=== PATIENT | male | born 1960 | race Caucasian/White ===

== ENCOUNTER → 2024-11-21 16:41 | Outpatient (REF) | payer BC, SELFPAY | LOC: RAD 16:41 | PROVIDERS: ATTENDING PHYSICIAN Specialist | DX: R31.0 Gross hematuria (principal) | CPT/HCPCS: 74178; Q9967 ==

== ENCOUNTER 2024-11-26 15:36 | Inpatient (IN) | payer BC, SELFPAY ==
[2024-11-26] VITALS (7 sets, daily range): BP systolic 126–157; BP diastolic 59–82; BMI 35.0
[2024-11-26 11:46] LABS: Urine Albumin 1+ (Neg - Trace); Urine Bilirubin Negative (Negative); Urine Character Clear (Clear); Urine Color Yellow; Urine Glucose 3+ (Negative); Urine Ketone 1+ (Negative); Urine Leukocyte 1+ (Negative); Urine Nitrite Negative (Negative); Urine Occult Blood 4+ (Negative); Urine Specific Gravity 1.025 (<1.030); Urine Urobilinogen Negative (Neg - 1+)
[2024-11-26 11:51] LABS: Hematocrit 49.2 % (39.0-52.0); Hemoglobin 16.7 g/dL (13.0-18.0); Mean Corp Hgb Conc. 33.9 g/dL (33.0-37.0); Mean Corpuscular Volume 88.5 fL (80.0-94.0); Mean Platelet Volume 8.8 fL (7.4-10.4); Platelet Count 247 10^3/uL (130-400); Red Blood Cell Count 5.56 10^6/uL (4.70-6.10); White Blood Cell Count 29.8 10^3/uL (4.8-10.8)
[2024-11-26 12:01] LABS: ALT (SGPT) 53 U/L (0-50); AST (SGOT) 37 U/L (17-59); Albumin 4.5 g/dl (3.5-5.0); Alkaline Phosphatase 86 U/L (38-126); Blood Urea Nitrogen 16 mg/dl (9-20); Calcium 10.3 mg/dl (8.4-10.2); Carbon Dioxide 20 mmol/L (22-30); Chloride 99 mmol/L (98-107); Glucose 200 mg/dl (70-99); Potassium 4.4 mmol/L (3.5-5.1); Sodium 132 mmol/L (135-145); Total Bilirubin 0.8 mg/dl (0.2-1.3); Total Protein 7.2 g/dl (6.3-8.2); eGFR > 60.00
[2024-11-26 12:15] LABS: Urine Mucus Many
[2024-11-26 12:16] LABS: Urine Amorphous Seen
[2024-11-26 12:17] LABS: Urine Red Blood Cell 0-2 /HPF (0-2)
[2024-11-26 12:21] LABS: Urine Bacteria Few (Negative)
[2024-11-26 12:29] LABS: Absolute Neutrophils -Man Diff 25.3 10^3/uL (1.4-6.5); Atypical Lymphocytes 1 %; Band Neutrophils 16 % (0-3); Lymphocytes 3 % (20-51); Monocytes 11 % (2-9); Platelets Checked Yes; Segmented Neutrophils 69 % (42-75)
[2024-11-26 12:30] LABS: Normal RBC Morphology Yes; Total Cells Counted 100
--- NOTE | 2024-11-26 13:32 | ED.GENMED ---
History of Present Illness
<Meme Ndiaye PA-C - Last Filed: 11/26/24 21:04>
General
Chief Complaint: Urinary Symptoms
Source: patient and spouse ( at bedside)
Exam Limitations: none
Time Seen by Provider: 11/26/24 13:07
Nursing documentation reviewed up to this point in time: agreed with
History of Present Illness
History of Present Illness:
Patient is a 64-year-old male with history hypertension, hyperlipidemia presenting to the emergency department for evaluation of fever associated with headache and bodyaches. Patient reports onset of fever, chills, body aches, and headache on
Monday. He had a temp of 101.2F at home earlier today. He also has been having hematuria. Patient denies any abdominal pain, nausea/vomiting.
Of note�patient has been dealing with hematuria over the past few weeks and had a cystoscopy performed with Dr. Maynard on . Apparently�cystoscopy revealed a very enlarged prostate otherwise no abnormalities. He did have a CT scan of his
abdomen/pelvis on Monday for which she has not received the results yet. Given recent urology procedure and flulike symptoms referred to the emergency department for further evaluation.
Past History
<Sherry Buenrostro DO - Last Filed: 11/26/24 15:29>
Past History
ED Past Medical History: HTN, Hypercholesterolemia, Other (Migraines and sleep apnea) and Other (Patent foramen ovale)
ED Past Surgical History: Other (Surg for sleep apnea)
Social History
Tobacco: Non-smoker
Alcohol: None
Personal:
Living: with family
Employment: Employed
Family History
Family History: Hypertension and Other (Patient has no family history of cerebral aneurysms or subarachnoid hemorrhage. Patient has no personal history of connective tissue disease or polycystic kidney disease.); Negative Early CAD or Sudden
Review of Systems
<Meme Ndiaye PA-C - Last Filed: 11/26/24 21:04>
Review of Systems
Allergies reviewed?: Yes
All Other Systems: ROS reviewed and negative except as documented in HPI and ROS
Phy Exam
<Meme Ndiaye PA-C - Last Filed: 11/26/24 21:04>
Physical Exam
Physical Exam:
Vitals: Mildly tachycardic, otherwise vital signs stable. Temp 99.2F
General: Patient is well appearing, no acute distress
Skin: Warm and dry, no rashes or lesions
Head: Normocephalic, atraumatic
Eyes: Sclera nonicteric. EOMs intact. No nystagmus.
Throat: Protecting airway
Neck: Normal ROM, no cervical spine tenderness, no meningismus
Cardiac: Regular rate and rhythm, no murmurs.
Pulm: Normal respiratory effort, no wheezes, rales, rhonchi heard on exam.
Abdomen: Abdomen soft. No abdominal tenderness. No CVA tenderness
Extremities: No evidence of cyanosis or edema. Palpable DP pulses.
Neuro: AAOx3. CN II-XII intact. No focal neurologic deficits.
Psychiatric: Normal affect.
Sepsis
<Meme Ndiaye PA-C - Last Filed: 11/26/24 21:04>
Sepsis Screening
Sepsis Assessment: Severe Sepsis
Sepsis Screening: Lactate >2mmol/L
Sepsis Screen
Sepsis Screen: Severe Sepsis
Date: 11/26/24
Time: 20:56
<Sherry Buenrostro DO - Last Filed: 11/26/24 15:29>
Sepsis Screen
Sepsis Screen: Severe Sepsis
Date: 11/26/24
Time: 15:29
Course
<Meme Ndiaye PA-C - Last Filed: 11/26/24 21:04>
Orders/Labs/Results
Orders:
Orders
11/26/24 11:28
Complete Blood Count/With Diff Urgent
Comprehensive Metabolic Panel Urgent
Manual Differential Urgent
Urinalysis Reflex To Culture Urgent
Date Specimen was Collected: 11/26/24
Time Specimen was Collected: 11:21
Urine Microscopic Reflex Cult Urgent
Urine Culture Urgent
RAYRAY Source: U
Specimen Description:
Date Specimen was Collected: 11/26/24
Time Specimen was Collected: 11:21
11/26/24 13:18
COVID-19 Antigen Urgent
Source: Nasal Swab
Lactic Acid Urgent
Blood Culture Urgent
RAYRAY Source: Blood/Venous
Specimen Description:
Influenza A+B Rapid Molecular Urgent
RAYRAY Source: Nasal Swab
Specimen Description:
11/26/24 13:40
0.9% Sodium Chloride 1000 ml [Nss] 1,000 ml IV BOLUS
Acetaminophen [Tylenol] 1,000 mg PO NOW STA
Ketorolac [Toradol] 15 mg IV NOW STA
11/26/24 14:12
Cefepime HCl [Maxipime] 2,000 mg IV NOW STA
11/26/24 Dinner
2200 calorie (18 carb) Diabetic
At Your Request: Full Participation
Diabetic Diet: Cholesterol Lowering
11/26/24 15:24
Admit/Transfer Patient As Directed
Co-Sign Provider:
Level of Care: Inpatient admission
Assign to:: Medical/Surgical
Physician / Group: Leonard Chavez
Diagnosis: sepsis
Reason for Hospitalization: sepsis
Expected length of stay greater than two midnights?: Yes
ELOS- Estimated Length of Stay in days: 3
I certify the patient meets the requirements for IP care: Yes
PRN Pain Medication Management As Directed
May give lesser potent ordered pain med per pt: Yes
preference::
Protocol:: Medication orders for pain may be administered in a
manner that supports deferring to patient preference
when the pt is:
- Requesting an ordered lesser potent pain medication.
Least to most potent pain medications are defined
as: acetaminophen < NSAID < tramadol < opioids
(morphine, oxycodone, hydromorphone).
- Requesting a lesser dose of the same medication IF
ORDERED.
- Requesting a less intrusive route of administration
if both routes are prescribed by the provider (PO <
IV).
11/26/24 15:27
Code Status As Directed
Resuscitation Status: Full Code
11/26/24 16:25
Blood Culture Stat
RAYRAY Source: Blood/Venous
Specimen Description:
11/26/24 17:45
0.9% Sodium Chloride 1000 ml [Nss] 1,000 ml IV 125 mls/hr
Acetaminophen [Tylenol] 650 mg PO Q4HPRN PRN
11/26/24 17:45
Activity As Directed
Activity Level: Ambulate
Vital Signs As Directed
Frequency: Per unit guidelines
Weight As Directed
Frequency: Once
DX Deep Vein Thrombosis Video Routine
11/26/24 18:00
Enoxaparin Sodium [Lovenox] 40 mg SC QPM
11/27/24 06:00
Basic Metabolic Panel IN AM
Complete Blood Count/No Diff IN AM
11/27/24 08:00
Finasteride [Proscar] 5 mg PO DAILY
Multivitamin [Theragran] 1 tablet PO DAILY
Ramipril [Altace] 5 mg PO DAILY
Rosuvastatin Calcium [Crestor] 5 mg PO DAILY
Abnormal Lab Results
11/26/24 11/26/24
11:28 13:18
WBC 29.8 H 10^3/uL
(4.8-10.8)
Abs Neuts (Manual) 25.3 H 10^3/uL
(1.4-6.5)
Band Neutrophils 16 H %
(0-3)
Lymphocytes (Manual) 3 L %
(20-51)
Monocytes (Manual) 11 H %
(2-9)
Sodium 132 L mmol/L
(135-145)
Carbon Dioxide 20 L mmol/L
(22-30)
Glucose 200 H mg/dl
(70-99)
Lactic Acid 3.6 H mmol/L
(0.7-2.0)
Calcium 10.3 H mg/dl
(8.4-10.2)
ALT 53 H U/L
(0-50)
Urine Ketones 1+ A
(Negative)
Ur Occult Blood Reflex 4+ A
(Negative)
Leukocyte Esterase Rfl 1+ A
(Negative)
Urine Bacteria (Reflex) Few A
(Negative)
Urine Glucose 3+ A
(Negative)
Urine Albumin (Reflex) 1+ A
(Neg - Trace)
11/26/24 11:28
11/26/24 11:28
Vital Signs
Initial and Last Documented VS:
Initial Vital Signs
Temp Pulse Resp BP Pulse Ox
98.5 F 95 18 126/82 95
11/26/24 11:18 11/26/24 11:18 11/26/24 11:18 11/26/24 11:18 11/26/24 11:18
Last Documented Vital Signs
Temp Pulse Resp BP Pulse Ox
97.8 F 80 24 154/59 97
11/26/24 17:53 11/26/24 17:53 11/26/24 17:53 11/26/24 17:53 11/26/24 17:53
<Sherry Buenrostro, DO - Last Filed: 11/26/24 15:29>
Orders/Labs/Results
Orders:
Orders
11/26/24 11:28
Complete Blood Count/With Diff Urgent
Comprehensive Metabolic Panel Urgent
Manual Differential Urgent
Urinalysis Reflex To Culture Urgent
Date Specimen was Collected: 11/26/24
Time Specimen was Collected: 11:21
Urine Microscopic Reflex Cult Urgent
Urine Culture Urgent
RAYRAY Source: U
Specimen Description:
Date Specimen was Collected: 11/26/24
Time Specimen was Collected: 11:21
11/26/24 13:18
COVID-19 Antigen Urgent
Source: Nasal Swab
Lactic Acid Urgent
Blood Culture Urgent
RAYRAY Source: Blood/Venous
Specimen Description:
Influenza A+B Rapid Molecular Urgent
RAYRAY Source: Nasal Swab
Specimen Description:
11/26/24 13:40
0.9% Sodium Chloride 1000 ml [Nss] 1,000 ml IV BOLUS
Acetaminophen [Tylenol] 1,000 mg PO NOW STA
Ketorolac [Toradol] 15 mg IV NOW STA
11/26/24 14:12
Cefepime HCl [Maxipime] 2,000 mg IV NOW STA
11/26/24 Dinner
2200 calorie (18 carb) Diabetic
At Your Request: Full Participation
Diabetic Diet: Cholesterol Lowering
11/26/24 15:24
Admit/Transfer Patient As Directed
Co-Sign Provider:
Level of Care: Inpatient admission
Assign to:: Medical/Surgical
Physician / Group: Leonard Chavez
Diagnosis: sepsis
Reason for Hospitalization: sepsis
Expected length of stay greater than two midnights?: Yes
ELOS- Estimated Length of Stay in days: 3
I certify the patient meets the requirements for IP care: Yes
PRN Pain Medication Management As Directed
May give lesser potent ordered pain med per pt: Yes
preference::
Protocol:: Medication orders for pain may be administered in a
manner that supports deferring to patient preference
when the pt is:
- Requesting an ordered lesser potent pain medication.
Least to most potent pain medications are defined
as: acetaminophen < NSAID < tramadol < opioids
(morphine, oxycodone, hydromorphone).
- Requesting a lesser dose of the same medication IF
ORDERED.
- Requesting a less intrusive route of administration
if both routes are prescribed by the provider (PO <
IV).
11/26/24 15:27
Code Status As Directed
Resuscitation Status: Full Code
11/26/24 16:25
Blood Culture Stat
RAYRAY Source: Blood/Venous
Specimen Description:
11/26/24 17:45
0.9% Sodium Chloride 1000 ml [Nss] 1,000 ml IV 125 mls/hr
Acetaminophen [Tylenol] 650 mg PO Q4HPRN PRN
11/26/24 17:45
Activity As Directed
Activity Level: Ambulate
Vital Signs As Directed
Frequency: Per unit guidelines
Weight As Directed
Frequency: Once
DX Deep Vein Thrombosis Video Routine
11/26/24 18:00
Enoxaparin Sodium [Lovenox] 40 mg SC QPM
11/27/24 06:00
Basic Metabolic Panel IN AM
Complete Blood Count/No Diff IN AM
11/27/24 08:00
Finasteride [Proscar] 5 mg PO DAILY
Multivitamin [Theragran] 1 tablet PO DAILY
Ramipril [Altace] 5 mg PO DAILY
Rosuvastatin Calcium [Crestor] 5 mg PO DAILY
Abnormal Lab Results
11/26/24 11/26/24
11:28 13:18
WBC 29.8 H 10^3/uL
(4.8-10.8)
Abs Neuts (Manual) 25.3 H 10^3/uL
(1.4-6.5)
Band Neutrophils 16 H %
(0-3)
Lymphocytes (Manual) 3 L %
(20-51)
Monocytes (Manual) 11 H %
(2-9)
Sodium 132 L mmol/L
(135-145)
Carbon Dioxide 20 L mmol/L
(22-30)
Glucose 200 H mg/dl
(70-99)
Lactic Acid 3.6 H mmol/L
(0.7-2.0)
Calcium 10.3 H mg/dl
(8.4-10.2)
ALT 53 H U/L
(0-50)
Urine Ketones 1+ A
(Negative)
Ur Occult Blood Reflex 4+ A
(Negative)
Leukocyte Esterase Rfl 1+ A
(Negative)
Urine Bacteria (Reflex) Few A
(Negative)
Urine Glucose 3+ A
(Negative)
Urine Albumin (Reflex) 1+ A
(Neg - Trace)
11/26/24 11:28
11/26/24 11:28
Vital Signs
Initial and Last Documented VS:
Initial Vital Signs
Temp Pulse Resp BP Pulse Ox
98.5 F 95 18 126/82 95
11/26/24 11:18 11/26/24 11:18 11/26/24 11:18 11/26/24 11:18 11/26/24 11:18
Last Documented Vital Signs
Temp Pulse Resp BP Pulse Ox
97.8 F 80 24 154/59 97
11/26/24 17:53 11/26/24 17:53 11/26/24 17:53 11/26/24 17:53 11/26/24 17:53
<Meme Ndiaye PA-C - Last Filed: 11/26/24 21:04>
MDM/Problems Addressed
Differential Diagnosis Includes:
Not limited to: Viral illness, urosepsis, nephrolithiasis, prostatitis, etc.
MDM/Problems Addressed:
64-year-old male presents with fever, body aches, hematuria 5 days after recent cystoscopy. No other URI symptoms including cough. No abdominal pain. Patient hypertensive and borderline tachycardic on arrival to emergency department. Otherwise
he has stable vital signs. Temp of 99.2F in ED. Physical exam as above. Cardia/pulmonary assessment unremarkable. Abdomen soft and nontender. Patient is perfusing well. Labs initiated in triage reviewed which show a significant leukocytosis of
29.8K. Chemistry shows mild hyperglycemia. Lactic elevated 3.6. Urine without evidence of clear infection although culture pending. Viral swabs negative. Blood cultures were sent. Patient does meet sepsis criteria with unknown etiology
although concern for urologic source given recent cystoscopy. Do not suspect intra-abdominal source given benign abdominal exam -no indication for repeat CT at this time. Did review patient's CT scan performed 4 days ago without any acute
abnormalities. No obstructing stone at that time. Patient hemodynamically stable with lactic acid <4 -will initiate IV fluids with 30 cc/kg fluid bolus not indicated this time. Will start IV cefepime and admit to hospitalist for further
management. Discussed with urologist who is aware. Patient admitted to hospital service in stable condition.
Chronic conditions affecting care:
Diabetes, hypertension
Acute Exacerbation and/or Progression of Chronic Illness:
Acute hyperglycemia, acutely hypertensive
<Meme Ndiaye PA-C - Last Filed: 11/26/24 21:04>
*Pulse Oximetry
Patient hypoxic: no
*EKG
Interpreted by ED Provider?: NA
*Mower Sharpener Interpretation
Rate: Mower Sharpener- N/A
*Critical Care Note
Total Time (30-74mins, 75-104mins- exclusive of procedures): Not Applicable
Data Reviewed
Review of Other/Old Records Reveals: Radiology Studies (CT abdomen pelvis 11/21/2024-no acute abnormalities)
ED Attending Note
<Sherry Davala, DO - Last Filed: 11/26/24 15:29>
ED Attending Note
Patient seen and examined by attending physician: Yes
I performed the substantive portion of visit, reviewed & personally made and approve the management plan that is documented in note by myself or EVERARDO.: Yes
I performed a history and physical exam of patient and discussed management with resident, I reviewed resident's note and agree with documented findings and plan of care.: Yes
ED Attending Note:
64-year-old male presenting to the emergency department with fevers, chills, body aches. Patient also presents with hematuria, which has been ongoing. He has been following with urology, had a cystoscopy with Dr. Maynard last week which was
allegedly normal. Does note that his prostate was enlarged. The following day he did have a CT of his abdomen pelvis, again without acute abnormality. 3 days ago he started to develop fever, chills, body aches. Denies cough. Denies abdominal
pain. Again notes persistent hematuria. He is not on any blood thinners. Vital signs are normal on arrival.
On exam patient is nontoxic, no acute distress. Benign cardiac, pulmonary, abdominal exam. Symptoms are concerning for underlying infection. Possible viral syndrome versus urinary source given recent procedure. Patient had laboratory analysis
obtained prior to my assessment. Patient with marked leukocytosis, which prompted sending of lactic acid. Lactic acid is 3. Blood pressure remained stable however. Given that lactate is less than 4 and blood pressure within normal limits,
without concern for septic shock or severe sepsis. Will start IV fluids, without current indication for full 30 cc/kg bolus. Urine does show some signs of infection, which could be source of patient's systemic infection. Possible component of
prostatitis. Patient did have COVID and flu swab, negative. Patient without any tenderness to his abdomen, without indication for advanced CT imaging at this time. Will start patient on antibiotics for suspected UTI. Culture sent. Plan for
admission. Urology made aware. Patient remained stable at this time.
-
Portions of this chart may have been created with voice recognition software.� Occasional wrong word or��sound alike� substitutions may have occurred due to the inherent limitations of voice recognition software.
Discharge Plan
Departure
Patient Disposition: Admit
Date of Disposition: 11/26/24
Time of Disposition: 14:32
Presentation/result/management discussed w/ accepting MD/DO: Hospitalist
Covid-19: Negative COVID-19
Discharge Problem:
Severe sepsis
Interventions
Interventions:
*Risk Screen - Suicide Last Done: 11/26/24 11:18
*General Assessment Last Done: 11/26/24 11:18
*Neglect/Abuse Screening Last Done: 11/26/24 11:18
ED- Fall Risk Assessment Last Done: 11/26/24 14:06
*ED COVID-19 Vaccine History Last Done: 11/26/24 17:56
*Nursing Disposition Last Done: 11/26/24 17:45
ED-Male Genitourinary Assessment Last Done: 11/26/24 14:06
Discharge Date and Time
Discharge Date/Time: 11/26/24 17:40
[2024-11-26 13:39] LABS: Lactic Acid 3.6 mmol/L (0.7-2.0)
[2024-11-26 13:43] LABS: COVID-19 Antigen Negative (Negative)
[2024-11-26] MEDS: NSS 1000 IV ×2 (14:04→19:09)
[2024-11-26] MEDS: TYLENOL 1000 MG PO (14:05)
[2024-11-26] MEDS: TORADOL 15 MG IV ×2 (14:05→21:16)
[2024-11-26] MEDS: MAXIPIME 2000 MG IV (14:33)
--- NOTE | 2024-11-26 14:43 | HPS.HSE ---
Family Physician
-
Family Physician: NOT KNOW UNKNOWN - PT DOES
Chief Complaint
-
fever, chills, severe headache
History of Present Illness
Patient is a 64-year-old male with past medical history significant for hypertension, hyperlipidemia, BPH, migraines and sleep apnea who presented to [facility] ED for evaluation of fever, chills and severe headache. He states that symptoms
started at approximately 0400 this morning with temp of 101.7F and was associated with a large amount of hematuria. Patient reports hematuria for a few weeks, having seen and undergone cystoscopy with Dr. Maynard last , findings of very
enlarged prostate otherwise no abnormalities. Patient denies any other urinary symptoms. Patient denies any dizziness, cough, shortness of breath, chest pain, nausea, vomiting, constipation, or diarrhea.
Medical History
Past Medical History
Past Medical History: Reports Other
Additional Past Medical History:
hypertension
hyperlipidemia
BPH
prediabetic
migraines
sleep apnea
Past Surgical History: Reports Other
Additional Past Surgical History:
sleep apnea surgery: Le Forte II
Social History
Tobacco: Non-smoker
Alcohol: None
Drug: None
Personal:
Living: With Family
Employment: Employed
Family History
Family History: Other (Mother: HTN, migraines; Sister: breast cancer )
Allergies / Home Medications
Allergies reflects when Allergies were last updated in [email or web address].
Home Medications with original date entered in [email or web address]
Allergy/Medication List:
Allergies
Allergy/AdvReac Type Severity Reaction Status Date / Time
bee venom protein (honey bee) Allergy Tongue Verified 11/26/24 11:21
Swelling
iodine [Iodine] Allergy Hives Verified 11/26/24 11:21
prochlorperazine edisylate Allergy Itching Verified 11/26/24 11:21
[From Compazine]
prochlorperazine maleate Allergy Itching Verified 11/26/24 11:21
[From Compazine]
Home Medications
ramipril 10 mg capsule 5 mg PO DAILY 09/20/10
sumatriptan succinate 50 mg tablet 150 mg PO PRN PRN headache 09/20/10
Vitamin E 1 tab PO DAILY 10/07/12
Fiber Pill 5 tab PO DAILY 11/26/24
Pro [place] Curcumin 1 tab PO TID 11/26/24
finasteride 5 mg tablet 5 mg PO DAILY 11/26/24
hvbybilx-lhmcfnnu-bacdilzs 3 mg-lutein 3 mg-herbal no219 200 mg tablet (PhytoMulti) 1 tab PO DAILY 11/26/24
rosuvastatin 5 mg tablet 5 mg PO DAILY 11/26/24
Review of Systems
-
History Source: Patient
Constitutional: Reports Fever and Chills
EENT: Reports No Symptoms
Respiratory: Reports No Symptoms
Cardiac: Reports No Symptoms
Abdomen/GI: Reports No Symptoms
: Reports Bleeding
Musculoskeletal: Reports No Symptoms
Skin: Reports No Symptoms
Neurological: Reports No Symptoms
Endocrine: Reports No Symptoms
Hematologic/Lymphatic: Reports No Symptoms
Psych: Reports No Symptoms
Physical Exam
Vital Signs
Vital Signs
Temp Pulse Resp BP Pulse Ox
98.5 F 96 21 151/79 95
11/26/24 11:18 11/26/24 14:30 11/26/24 14:30 11/26/24 14:06 11/26/24 13:45
Physical Exam
General: Well Developed, Well Nourished, No Apparent Distress, Comfortable and Conversant
HEENT: NormoCephalic, Moist mucous membranes, Atraumatic, [place] Conjunctivae, Nose Appears Normal and Ears Appear Normal
Respiratory: Clear and Non Labored Respirations
Cardiac: S1/S2 and Regular Rhythm; No Murmur, Rub or Gallop
Breast: Deferred by me
GI: Soft, Non Tender, Non Distended and Normal Bowel Sounds; No Organomegaly
Rectal: Deferred by Provider
Genito-urinary: No costovertebral tender
Musculoskeletal: No Clubbing, No Cyanosis and No Edema
Skin: Warm and IV/Catheter Site; No Rash
Neuro: Awake, Alert, AO x 3 and Nonfocal/grossly intact
Psych: Calm and Intact Judgment/Insight
Laboratory Results
-
11/26/24 11:28
11/26/24 11:28
Laboratory Results
Lactic Acid 3.6 mmol/L (0.7-2.0) H 11/26/24 13:18
Total Bilirubin 0.8 mg/dl (0.2-1.3) 11/26/24 11:28
AST 37 U/L (17-59) 11/26/24 11:28
ALT 53 U/L (0-50) H 11/26/24 11:28
Alkaline Phosphatase 86 U/L (38-126) 11/26/24 11:28
Data Reviewed
-
Lab Data: Labs Reviewed by me (WBC 29.8, Lactic 3.6)
Impression/Plan
-
IMPRESSION/PLAN:
#sepsis likely 2/2 recent cystoscopy
Patient reports hematuria for a few weeks, having seen and undergone cystoscopy with Dr. Maynard last , findings of very enlarged prostate otherwise no abnormalities.
WBC 29.8. Lactic 3.6
UA C&S: pending
Blood Cx: pending
Covid: negative
Influenza: negative
- Admit to med/surg
- IV antibiotics
- IVF
- supportive care
#hypertension
- continue ramipril
#hyperlipidemia
- continue rosuvastatin
#BPH
- continue finasteride
#prediabetes
patient reports A1C 7.8 down to 7.1
- currently monitoring
- patient with lifestyle adjustments, healthy diet, weight loss and exercise
#obesity from excess calories
- affects all aspects of care
- encourage healthy lifestyle with healthy diet and exercise for weight loss
#migraines
- continue sumatriptan PRN
#sleep apnea
s/p sleep apnea surgery: Le Forte II
Code status: full code
DVT prophylaxis: lovenox sq
--- NOTE | 2024-11-26 14:50 | CONS.URO ---
Consultation
-
Date/Time Consultation Performed: 11/26/24 1605
Requesting Provider: ED
Performing Provider: Elio
Reason for Consultation: hematuria
Medical History
History of Present Illness
'Patient is a 64-year-old male presented to the emergency department for evaluation of fever, headache and bodyaches. Patient reports onset of fever, chills, body aches, and headache on Monday. He had a temp of 101.2F at home earlier today.'
Outpatient cystoscopy on 11/20/[address] Maynard demonstrated friable BPH only.
He denies frequency/urgency/dysuria.
Past Medical History
Past Medical History: Other ( Hypertension. Hyperlipidemia. Migraine. Sleep Apnea. Anxiety. BPH. Covid-19 (04/2022).)
Past Surgical History: Other (sleep apnea surgery: Le Forte II)
Social History
Personal:
Allergies/Home Medications
Allergies
Allergy/AdvReac Type Severity Reaction Status Date / Time
bee venom protein (honey bee) Allergy Tongue Verified 11/26/24 11:21
Swelling
iodine [Iodine] Allergy Hives Verified 11/26/24 11:21
prochlorperazine edisylate Allergy Itching Verified 11/26/24 11:21
[From Compazine]
prochlorperazine maleate Allergy Itching Verified 11/26/24 11:21
[From Compazine]
Home Medications
�Medication �Instructions �Recorded �Confirmed �Type
ramipril 10 mg capsule 5 mg PO DAILY 09/20/10 11/26/24 History
sumatriptan succinate 50 mg tablet 150 mg PO PRN PRN headache 09/20/10 11/26/24 History
verapamil 240 mg tablet,extended 240 mg PO DAILY 09/20/10 10/29/13 History
release
Vitamin E 1 tab PO DAILY 10/07/12 10/29/13 History
Fiber Pill 5 tab PO DAILY 11/26/24 11/26/24 History
Pro [place] Curcumin 1 tab PO TID 11/26/24 11/26/24 History
finasteride 5 mg tablet 5 mg PO DAILY 11/26/24 11/26/24 History
wpqnfzvo-zvckupca-qhzeqkam 3 1 tab PO DAILY 11/26/24 11/26/24 History
mg-lutein 3 mg-herbal no219 200 mg
tablet (PhytoMulti)
rosuvastatin 5 mg tablet 5 mg PO DAILY 11/26/24 11/26/24 History
Physical Exam
Vital Signs
Vital Signs
Temp Pulse Resp BP Pulse Ox
98.5 F 96 21 151/79 95
11/26/24 11:18 11/26/24 14:30 11/26/24 14:30 11/26/24 14:06 11/26/24 13:45
Lab / Testing Results
Laboratory Results
11/26/24 11:28
11/26/24 11:28
Physical Exam
adult male on ED [facility]
General: Well Nourished and No Apparent Distress
Neuro: Awake and Alert
Psych: Calm and Intact Judgement
Assessment / Plan
-
Systemic infection of uncertain etiology -- bacterial prostatitis s/p cystoscopy is one possibility though absence of irritative voiding sx make this a less likely candidate that a viral URI
Rec: tx for bacterial UTI pending urine cx results
Data Reviewed
-
CT Scan: Image personally visualized and interpreted (no pathology)
Lab Data: Labs Reviewed
Old Records: Reviewed
--- NOTE | 2024-11-26 15:54 | W.PN.UPDATE ---
Update Note
Progress Note Update
This is an addendum to the H&P written by Rossana Lindsey on 11/26/2024.� Patient seen and examined independently with CAR DEALER.
64-year-old male past medical history of BPH, PFO, hypertension, hyperlipidemia, migraines, sleep apnea, presenting with fever with headache and bodyaches starting 2 days ago.� Also with blood in the urine.� Denies abdominal pain or nausea or
vomiting.� He has been having hematuria for the past 2 weeks and a cystoscopy Dr. Maynard 5 days ago.� Cystoscopy revealed very enlarged prostate doubt any other abnormalities.
White blood cell count of 29.� Lactic acid 3.6.� COVID and flu negative.� Urinalysis shows blood but otherwise unremarkable.
Patient with sepsis likely secondary to urinary infection from recent cystoscopy.� IV fluids, urine culture, blood cultures, ceftriaxone.� Urology consulted.��
[2024-11-26 17:18] LABS: Lactic Acid 2.2 mmol/L (0.7-2.0)
--- NOTE | 2024-11-26 18:15 | PTCARENOTE ---
Pt brought up by ED via stretcher and able to ambulate to bed without assistance. Admission completed and pt. resting comfortably in bed. Will update [facility] worker RN.
[2024-11-26] MEDS: LOVENOX 40 MG SC (19:09)
[2024-11-26] MEDS: TYLENOL 650 MG PO (19:09)
[2024-11-26 21:37] LABS: Glucose - Point of Care 188 mg/dl (70-99)
[2024-11-26] MEDS: BENADRYL 25 MG PO (22:02)
[2024-11-26 22:37] LABS: Lactic Acid 1.8 mmol/L (0.7-2.0)
[2024-11-27] MEDS: STERILE WATER FOR INJECTION 10 ML IV ×2 (02:19→14:28)
[2024-11-27] MEDS: MAXIPIME 1000 MG IV ×2 (02:19→14:28)
[2024-11-27] MEDS: NSS 1000 IV ×2 (03:31→11:50)
[2024-11-27] MEDS: TORADOL 15 MG IV ×2 (03:45→14:28)
--- NOTE | 2024-11-27 05:38 | PTCARENOTE ---
Pt c/o urinary frequency, no c/o burning. Urine slightly blood tinged, no clots present. difficulty visualizing bladder w/ bladder scan d/t body habitus. No c/o discomfort or pain and abd not distended. Contacted [employer] SURVEYS INTERVIEWER for Pyridium, electronic order
for Toradol 15mg IV added. Will pass on urinary frequency complaints to dayshift RN. Plan of care ongoing.
[2024-11-27 06:46] LABS: Hematocrit 39.6 % (39.0-52.0); Hemoglobin 13.7 g/dL (13.0-18.0); Mean Corp Hgb Conc. 34.6 g/dL (33.0-37.0); Mean Corpuscular Hgb 30.2 pg (27.0-31.0); Mean Corpuscular Volume 87.2 fL (80.0-94.0); Platelet Count 213 10^3/uL (130-400); Red Blood Cell Count 4.54 10^6/uL (4.70-6.10); Red Cell Dist. Width 13.2 % (11.5-14.5); White Blood Cell Count 25.8 10^3/uL (4.8-10.8)
[2024-11-27 07:06] LABS: Lactic Acid 1.1 mmol/L (0.7-2.0)
[2024-11-27 07:19] VITALS: BP 146/77
[2024-11-27 07:23] LABS: Glucose - Point of Care 195 mg/dl (70-99)
[2024-11-27 07:31] LABS: Blood Urea Nitrogen 16 mg/dl (9-20); Calcium 9.6 mg/dl (8.4-10.2); Carbon Dioxide 22 mmol/L (22-30); Chloride 102 mmol/L (98-107); Estimated Creatinine Clearance > 125 ml/min; Glucose 179 mg/dl (70-99); Potassium 3.8 mmol/L (3.5-5.1); Sodium 132 mmol/L (135-145); eGFR > 60.00
--- NOTE | 2024-11-27 07:34 | W.PN.HOSP.TC ---
Today's Communication/Plan
-
see bold
Assessment / Plan
Assessment / Plan
64-year-old male past medical history of BPH, PFO, hypertension, hyperlipidemia, migraines, sleep apnea, presenting with fever with headache and bodyaches starting 2 days ago.� Also with blood in the urine.� Denies abdominal pain or nausea or
vomiting.� He has been having hematuria for the past 2 weeks and a cystoscopy Dr. Maynard 5 days ago.� Cystoscopy revealed very enlarged prostate doubt any other abnormalities.
White blood cell count of 29.� Lactic acid 3.6.� COVID and flu negative.� Urinalysis shows blood but otherwise unremarkable.
Patient with sepsis likely secondary to urinary infection from recent cystoscopy.� IV fluids, urine culture, blood cultures, ceftriaxone.� Urology consulted.��
#Sepsis likely 2/2 acute UTI
Recent cystoscopy 11/20/[address] Maynard showing friable BPH
Patient reports hematuria for a few weeks
Appreciate urology input, continue IV cefepime, follow-up on urine cultures
Urology ordered Detrol
Trend fever/white count
#Headache
Continue sumatriptan, ibuprofen, oxy prn
#hypertension
Continue ramipril
#hyperlipidemia
Continue rosuvastatin
#BPH
Continue finasteride
#diabetes
A1C 7.7
Sliding scale insulin, start glimepiride
#obesity from excess calories
- affects all aspects of care
- encourage healthy lifestyle with healthy diet and exercise for weight loss
#sleep apnea
s/p sleep apnea surgery: Le Forte II
DVT prophylaxis: lovenox sq
Full Code
Updated at bedside 11/27
Total time spent to see the patient on the floor, examine the patient, review data and lab results, discuss treatment plan with patient, nursing staff around 51 minutes.
Physical Exam
General: Obese, no acute distress
HEENT: Normocephalic, Atraumatic, EOMI, MMM
Respiratory: Clear to Auscultation bilaterally
Cardiac: Normal S1/S2, Regular Rate and Rhythm
GI: Soft, Nontender, Nondistended, Normal Bowel Sounds
Extremities: No Clubbing, Cyanosis, or Edema
Neuro: Nonfocal/Grossly Intact
Anticipated Discharge: 24 - 48 hours
Subjective/Interval History
-
Date of Service: November 27, 2024
Patient complains of urinary frequency. Denies CP/SOB/palp. No fever, no vomiting.
Objective Data
-
Labs:
Laboratory Results
11/27/24
06:32
WBC 25.8 H
Hgb 13.7
Hct 39.6
Plt Count 213
Sodium 132 L
Potassium 3.8
Chloride 102
Carbon Dioxide 22
BUN 16
Creatinine 0.8
Glucose 179 H
Calcium 9.6
Vital Signs:
Vital Signs
Temp Pulse Resp BP Pulse Ox
98.3 F 82 24 146/77 98
11/27/24 07:19 11/27/24 07:19 11/27/24 07:19 11/27/24 07:19 11/27/24 07:19
I&O
11/26/24 11/27/24 11/28/24
06:59 06:59 06:59
Intake Total 1919
Output Total 500 / 500
Balance 1420 / 1420
--- NOTE | 2024-11-27 08:38 | W.PN.URO.CBU ---
Today's Communication / Plan
-
Rec: tx for bacterial UTI pending urine cx results
Phenazopyridine and Tamsulosin prescribed to diminish irritative voiding sx
Assessment / Plan
-
Systemic infection of uncertain etiology -- bacterial prostatitis s/p cystoscopy is one possibility though absence of irritative voiding sx make this a less likely candidate that a viral URI
Diagnosis
-
Date of Service: November 27, 2024
-
Patient Diagnosis:
Systemic infection of uncertain etiology -- bacterial prostatitis s/p cystoscopy is one possibility though absence of irritative voiding sx make this a less likely candidate that a viral URI
Subjective
-
irritative voiding sx
Objective
-
Vital Signs
Temp Pulse Resp BP Pulse Ox
98.3 F 82 24 146/77 98
11/27/24 07:19 11/27/24 07:19 11/27/24 07:19 11/27/24 07:19 11/27/24 07:19
Intake and Output
11/26/24 11/27/24 11/28/24
06:59 06:59 06:59
Intake Total 1920 / 1920
Output Total 500 / 500
Balance 1420 / 1420
Intake:
Oral fluids 720 / 720
IV fluids (Total) 1200 / 1200
Output:
Urine, Voided 500 / 500
Other:
Number of approximated MODERATE 7
amounts of urine
Laboratory Results
11/27/24 06:32
11/27/24 06:32
urine cx: pending
Physical Exam
-
General - well developed, well nourished, no acute distress
Chest - clear bilaterally
Abdomen - soft, non-tender, positive bowel sounds, no CVAT, no incisional pain or distention
Genitalia - normal
Rectal - normal
Skin - warm & dry with no rash
Neuro - AOx3, no motor deficits
Extremities - no clubbing, no cyanosis, no edema
Incision - clean, dry
Dressing - clean, dry, intact
[2024-11-27] MEDS: PROSCAR 5 MG PO (08:48)
[2024-11-27] MEDS: Pyridium 200 MG PO ×3 (08:48→22:09)
[2024-11-27] MEDS: FLOMAX 0.4 MG PO (08:48)
[2024-11-27] MEDS: THERAGRAN 1 TABLET PO (08:48)
[2024-11-27] MEDS: CRESTOR 5 MG PO (08:48)
[2024-11-27] MEDS: ALTACE 5 MG PO (08:48)
[2024-11-27] MEDS: GLUCOTROL 5 MG PO ×2 (10:54→18:20)
[2024-11-27 11:55] LABS: Glucose - Point of Care 235 mg/dl (70-99)
[2024-11-27] MEDS: NOVOLOG FLEXPEN-MODERATE RESISTANCE 3 UNITS SC (12:04)
--- NOTE | 2024-11-27 12:40 | PTCARENOTE ---
Pt. complaining of worsening urinary symptoms- needing to void every couple of minutes, unable to fully empty his bladder, and continuing to have bloody urine as well as occasional clots in the urine. PRN Pyridium given this morning with zero
relief. Urologist updated on pt. condition. This RN educated pt. on symptoms related to diabetes, UTI, and BPH- type 2 diabetes education packet from [employer] given to Pt. Pt. stated he has previously been recommended to start medications to manage
his diabetes but has refused in the past. Today BG 235,- Pt. agreeable to have Accu-checks and receive his sliding scale Novolog as well as the glipizide that was started today by Dr. De Jesus. HA1C pending.
--- NOTE | 2024-11-27 14:15 | CM ---
Met with patient to obtain information for assessment. Patient's was at bedside. Patient stated that he lives with his and adult son in a three story townhouse with two steps to enter. He described himself as independent with all of his
ADLs, personal care, dressing and bathing. 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 He can drive and can get himself to his appointments and does his own shopping. 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
Patient denied any DME at home. He has never had VN services. He has not been to a SNF in the past.
Patient has a prescription plan and uses, [facility] [place] for all of his medications.
His PCP is not listed.
Patient stated that he would like to return home when medically cleared.
Plan: Case management will continue to follow and assist with discharge planning. Home when stable.
[2024-11-27 14:17] VITALS: BP 149/78
[2024-11-27 14:18] LABS: Glycohemoglobin (HgbA1c) 7.7 % (4.0-5.6)
[2024-11-27] MEDS: TYLENOL 650 MG PO (14:27)
[2024-11-27] MEDS: DETROL LA 4 MG PO (15:57)
[2024-11-27 17:10] LABS: Glucose - Point of Care 147 mg/dl (70-99)
[2024-11-27] MEDS: NOVOLOG FLEXPEN-MODERATE RESISTANCE SC (17:21)
[2024-11-27] MEDS: LOVENOX 40 MG SC (18:20)
[2024-11-27] MEDS: MELATONIN 5 MG PO (20:40)
[2024-11-27] MEDS: BENADRYL 50 MG PO (22:09)
[2024-11-27 22:14] LABS: Glucose - Point of Care 121 mg/dl (70-99)
[2024-11-27 23:30] VITALS: BP 139/86
[2024-11-28] MEDS: MAXIPIME 1000 MG IV (01:59)
[2024-11-28] MEDS: STERILE WATER FOR INJECTION 10 ML IV ×2 (01:59→13:24)
[2024-11-28] MEDS: MOTRIN 800 MG PO ×3 (02:03→21:21)
[2024-11-28] MEDS: NSS 1000 IV (02:09)
[2024-11-28 07:10] VITALS: BP 146/89
[2024-11-28] MEDS: Pyridium 200 MG PO ×3 (07:12→21:21)
[2024-11-28] MEDS: PROSCAR 5 MG PO (07:20)
[2024-11-28] MEDS: DETROL LA 4 MG PO (07:20)
[2024-11-28] MEDS: CRESTOR 5 MG PO (07:20)
[2024-11-28] MEDS: FLOMAX 0.4 MG PO (07:20)
[2024-11-28] MEDS: THERAGRAN 1 TABLET PO (07:20)
[2024-11-28] MEDS: ALTACE 5 MG PO (07:20)
[2024-11-28] MEDS: GLUCOTROL 5 MG PO ×2 (07:20→16:05)
[2024-11-28 07:27] LABS: Hematocrit 42.4 % (39.0-52.0); Hemoglobin 14.2 g/dL (13.0-18.0); Mean Corp Hgb Conc. 33.5 g/dL (33.0-37.0); Mean Corpuscular Hgb 30.4 pg (27.0-31.0); Mean Corpuscular Volume 90.8 fL (80.0-94.0); Mean Platelet Volume 8.8 fL (7.4-10.4); Platelet Count 222 10^3/uL (130-400); Red Blood Cell Count 4.67 10^6/uL (4.70-6.10); Red Cell Dist. Width 13.3 % (11.5-14.5); White Blood Cell Count 20.9 10^3/uL (4.8-10.8)
[2024-11-28 08:04] LABS: Glucose - Point of Care 137 mg/dl (70-99)
[2024-11-28 08:29] LABS: Blood Urea Nitrogen 13 mg/dl (9-20); Carbon Dioxide 21 mmol/L (22-30); Chloride 106 mmol/L (98-107); Estimated Creatinine Clearance > 125 ml/min; Glucose 131 mg/dl (70-99); Potassium 4.1 mmol/L (3.5-5.1); Sodium 135 mmol/L (135-145); eGFR > 60.00
[2024-11-28] MEDS: NOVOLOG FLEXPEN-MODERATE RESISTANCE SC ×3 (08:37→17:17)
--- NOTE | 2024-11-28 08:50 | W.PN.HOSP.TC ---
Today's Communication/Plan
-
Probable discharge tomorrow with continued improvement
Assessment / Plan
Assessment / Plan
64-year-old male past medical history of BPH, PFO, hypertension, hyperlipidemia, migraines, sleep apnea, presenting with fever with headache and bodyaches starting 2 days ago.� Also with blood in the urine.� Denies abdominal pain or nausea or
vomiting.� He has been having hematuria for the past 2 weeks and a cystoscopy Dr. Maynard 5 days ago.� Cystoscopy revealed very enlarged prostate doubt any other abnormalities.
White blood cell count of 29.� Lactic acid 3.6.� COVID and flu negative.� Urinalysis shows blood but otherwise unremarkable.
Patient with sepsis likely secondary to urinary infection from recent cystoscopy.� IV fluids, urine culture, blood cultures, ceftriaxone.� Urology consulted.��
#Sepsis
#Subacute bacterial prostatitis
Recent cystoscopy 11/20/[address] Maynard showing friable BPH
Patient reports hematuria for a few weeks
Appreciate urology input, order Detrol
Urine cultures growing Klebsiella, sensitive to cefepime and Rocephin
Change cefepime to Rocephin, trend fever and white count
Possible discharge tomorrow
#Headache
Continue ibuprofen, oxy prn
#hypertension
Continue ramipril
#hyperlipidemia
Continue rosuvastatin
#BPH
Continue finasteride and Flomax
#diabetes
A1C 7.7
Sliding scale insulin, blood sugars improved with starting glipizide 5 mg twice a day, recommend continuing upon discharge
#hyponatremia
monitor
#obesity from excess calories
- affects all aspects of care
- encourage healthy lifestyle with healthy diet and exercise for weight loss
#sleep apnea
s/p sleep apnea surgery: Le Forte II
DVT prophylaxis: lovenox sq
Full Code
Updated at bedside 11/27
Total time spent to see the patient on the floor, examine the patient, review data and lab results, discuss treatment plan with patient, nursing staff around 50 minutes.
Physical Exam
General: Obese, no acute distress
HEENT: Normocephalic, Atraumatic, EOMI, MMM
Respiratory: Clear to Auscultation bilaterally
Cardiac: Normal S1/S2, Regular Rate and Rhythm
GI: Soft, Nontender, Nondistended, Normal Bowel Sounds
Extremities: No Clubbing, Cyanosis, or Edema
Neuro: Nonfocal/Grossly Intact
Anticipated Discharge: Within 24 hours
Subjective/Interval History
-
Date of Service: November 28, 2024
Patient reports feeling better. Headache resolved. Fever resolved. No chest pain, no shortness of breath. No belly pain, no vomiting.
Objective Data
-
Labs:
Laboratory Results
11/28/24
06:59
WBC 20.9 H
Hgb 14.2
Hct 42.4
Plt Count 222
Sodium 135
Potassium 4.1
Chloride 106
Carbon Dioxide 21 L
BUN 13
Creatinine 0.7
Glucose 131 H
Calcium 10.0
Vital Signs:
Vital Signs
Temp Pulse Resp BP Pulse Ox
97.6 F 69 16 146/89 98
11/28/24 07:10 11/28/24 07:20 11/28/24 07:10 11/28/24 07:20 11/28/24 07:10
I&O
11/27/24 11/28/24 11/29/24
06:59 06:59 06:59
Intake Total 1920 / 1920 1440 / 1440
Output Total 500 / 500 100 / 100
Balance 1420 / 1420 1340 / 1340
--- NOTE | 2024-11-28 08:58 | PN.CDI ---
CDI
- -
CDI:
Physician Documentation Request
Admit Date: 11/26/24 15:36
Dear Doctor Do,
Clinical Indicators:
Patient admitted with sepsis; Patient presented with headache/bodyaches.
Sodium levels:
11/26/24 11/27/24
11:28 06:32
Sodium 132 L 132 L
Based on the above, could you clarify in the progress notes, the appropriate diagnosis, if significant, that supports the above abnormalities and additional evaluation, monitoring and/or treatment rendered:
Hyponatremia
Abnormal lab values, clinically insignificant
Other
Use of terms such as suspected, likely, concern for, or probable (associated with a specific diagnosis that is being evaluated, monitored, or treated as if it exists) are acceptable and can be coded in the inpatient setting, when documented at the
time of discharge.
Thank you,
Ignacia Tucker RN BSN
CDI Specialist
available via tiger text
Please use your independent medical judgment in providing your response.
--- NOTE | 2024-11-28 10:18 | W.PN.URO.CBU ---
Today's Communication / Plan
-
Sub-acute bacterial prostatitis w/o bacteremia: Klebsiella sensitive to cefepime
Assessment / Plan
-
Sub-acute bacterial prostatitis w/o bacteremia
Diagnosis
-
Date of Service: November 28, 2024
-
Patient Diagnosis:
Systemic infection of uncertain etiology -- c/w bacterial prostatitis s/p cystoscopy (Klebsiella confirmed)
Subjective
-
Feels better
Urine frequency lessening
Objective
-
Vital Signs
Temp Pulse Resp BP Pulse Ox
97.6 F 69 16 146/89 98
11/28/24 07:10 11/28/24 07:20 11/28/24 07:10 11/28/24 07:20 11/28/24 07:10
Intake and Output
11/27/24 11/28/24 11/29/24
06:59 06:59 06:59
Intake Total 1920 / 1920 1440 / 1440
Output Total 500 / 500 100 / 100
Balance 1420 / 1420 1340 / 1340
Intake:
Oral fluids 720 / 720 1440 / 1440
IV fluids (Total) 1200 / 1200
Output:
Urine, Voided 500 / 500 100 / 100
Other:
Number of approximated SMALL 12
amounts of urine
Number of approximated MODERATE 7
amounts of urine
Laboratory Results
11/28/24 06:59
11/28/24 06:59
Review of Systems
-
Constitutional: Fatigue
Respiratory: No Symptoms
Cardiac: No Symptoms
Abdomen/GI: No Symptoms
: Frequency and Urgency
Physical Exam
-
General - well developed, well nourished, no acute distress
Abdomen - soft, non-tender, no CVAT
Genitalia - normal
Skin - warm & dry with no rash
Counseling
-
Continue cefepime and then switch to oral antibiotic
Continue tolterodine while an inpatient
[2024-11-28 11:35] VITALS: BP 124/61; BMI 31.7
[2024-11-28 12:01] LABS: Glucose - Point of Care 106 mg/dl (70-99)
[2024-11-28] MEDS: NSS IV (13:18)
[2024-11-28] MEDS: ROCEPHIN 1000 MG IV (13:24)
--- NOTE | 2024-11-28 14:09 | PTCARENOTE ---
Pt c/o overreactive bladder. made aware, new order provided, see MAR.
[2024-11-28] MEDS: VALIUM 5 MG PO (14:15)
[2024-11-28 14:41] VITALS: BP 154/84
--- NOTE | 2024-11-28 16:46 | PTCARENOTE ---
Pt requested development educator consult, MD made aware, new verbal order provided.
[2024-11-28 16:49] LABS: Glucose - Point of Care 78 mg/dl (70-99)
[2024-11-28] MEDS: LOVENOX 40 MG SC (17:45)
[2024-11-28] MEDS: BENADRYL 50 MG PO (21:41)
[2024-11-28] MEDS: MELATONIN 5 MG PO (21:41)
[2024-11-28 21:53] LABS: Glucose - Point of Care 136 mg/dl (70-99)
--- NOTE | 2024-11-28 22:18 | PTCARENOTE ---
Pt c/o frequency, urgency, and pain w/ urination. Bladder scanned for 862mls. HEADER DOCK notified, BS/SC protocol ordered. Pt straight cathed for 900mls of clear orange urine (pt taking pyridium. Plan of care ongoing.
[2024-11-28 23:40] VITALS: BP 125/71
[2024-11-29 02:02] VITALS: BMI 34.9
[2024-11-29 07:05] VITALS: BP 142/88
[2024-11-29 07:26] LABS: Glucose - Point of Care 142 mg/dl (70-99)
[2024-11-29 07:27] LABS: Hematocrit 38.3 % (39.0-52.0); Hemoglobin 13.1 g/dL (13.0-18.0); Mean Corp Hgb Conc. 34.2 g/dL (33.0-37.0); Mean Corpuscular Hgb 30.2 pg (27.0-31.0); Mean Corpuscular Volume 88.2 fL (80.0-94.0); Mean Platelet Volume 9.3 fL (7.4-10.4); Platelet Count 253 10^3/uL (130-400); Red Blood Cell Count 4.34 10^6/uL (4.70-6.10); Red Cell Dist. Width 13.3 % (11.5-14.5); White Blood Cell Count 10.3 10^3/uL (4.8-10.8)
[2024-11-29 07:51] LABS: Glucose - Point of Care 122 mg/dl (70-99)
--- NOTE | 2024-11-29 08:43 | W.PN.HOSP.TC ---
Today's Communication/Plan
-
see bold
Assessment / Plan
Assessment / Plan
64-year-old male past medical history of BPH, PFO, hypertension, hyperlipidemia, migraines, sleep apnea, presenting with fever with headache and bodyaches starting 2 days ago.� Also with blood in the urine.� Denies abdominal pain or nausea or
vomiting.� He has been having hematuria for the past 2 weeks and a cystoscopy Dr. Maynard 5 days ago.� Cystoscopy revealed very enlarged prostate doubt any other abnormalities.
White blood cell count of 29.� Lactic acid 3.6.� COVID and flu negative.� Urinalysis shows blood but otherwise unremarkable.
Patient with sepsis likely secondary to urinary infection from recent cystoscopy.� IV fluids, urine culture, blood cultures, ceftriaxone.� Urology consulted.��
#Sepsis
#Subacute bacterial prostatitis
Recent cystoscopy 11/20/[address] Maynard showing friable BPH
Patient reports hematuria for a few weeks
Appreciate urology input
Urine cultures growing Klebsiella, sensitive to cefepime and Rocephin
Changed cefepime to Rocephin, trend fever and white count
Plan to discharge on cefdinir to complete a 14-day course
#Acute urinary retention
#BPH
Continue finasteride and Flomax
Stop Detrol and Valium
Straight cath as needed, if patient continues to have urinary retention�urology recommends discharge with Long and follow-up in the office early next week for removal
#Headache
Continue ibuprofen, oxy prn
#hypertension
Continue ramipril
#hyperlipidemia
Continue rosuvastatin
#diabetes
A1C 7.7
Sliding scale insulin, blood sugars improved with starting glipizide 5 mg twice a day, recommend continuing upon discharge
#hyponatremia
monitor
#obesity from excess calories
- affects all aspects of care
- encourage healthy lifestyle with healthy diet and exercise for weight loss
#sleep apnea
s/p sleep apnea surgery: Le Forte II
DVT prophylaxis: lovenox sq
Full Code
Updated at bedside 11/27
Total time spent to see the patient on the floor, examine the patient, review data and lab results, discuss treatment plan with patient, nursing staff around 45 minutes.
Physical Exam
General: Obese, no acute distress
HEENT: Normocephalic, Atraumatic, EOMI, MMM
Respiratory: Clear to Auscultation bilaterally
Cardiac: Normal S1/S2, Regular Rate and Rhythm
GI: Soft, Nontender, Nondistended, Normal Bowel Sounds
Extremities: No Clubbing, Cyanosis, or Edema
Neuro: Nonfocal/Grossly Intact
Anticipated Discharge: Within 24 hours
Subjective/Interval History
-
Date of Service: November 29, 2024
Patient complains of urinary retention, requiring straight cath. No fever, no vomiting.
Objective Data
-
Labs:
Laboratory Results
11/29/24
07:00
WBC 10.3
Hgb 13.1
Hct 38.3 L
Plt Count 253
Vital Signs:
Vital Signs
Temp Pulse Resp BP Pulse Ox
97.8 F 68 18 142/88 96
11/29/24 07:05 11/29/24 07:05 11/29/24 07:05 11/29/24 07:05 11/29/24 07:05
I&O
11/28/24 11/29/24 11/30/24
06:59 06:59 06:59
Intake Total 1440 / 1440 540 / 540
Output Total 100 / 100 900 / 900
Balance 1340 / 1340 -360 / -360
[2024-11-29] MEDS: NOVOLOG FLEXPEN-MODERATE RESISTANCE SC ×3 (09:23→17:38)
[2024-11-29] MEDS: Pyridium 200 MG PO ×2 (09:35→14:35)
[2024-11-29] MEDS: VALIUM 5 MG PO (09:35)
[2024-11-29] MEDS: THERAGRAN 1 TABLET PO (09:35)
[2024-11-29] MEDS: FLOMAX 0.4 MG PO (09:35)
[2024-11-29] MEDS: DETROL LA 4 MG PO (09:35)
[2024-11-29] MEDS: GLUCOTROL 5 MG PO ×2 (09:36→17:39)
[2024-11-29] MEDS: PROSCAR 5 MG PO (09:36)
[2024-11-29] MEDS: ALTACE 5 MG PO (09:36)
[2024-11-29] MEDS: CRESTOR 5 MG PO (09:36)
--- NOTE | 2024-11-29 11:32 | PTCARENOTE ---
11/29/2024 DIABETES EDUCATION
I met with Ambrose to review diabetes management. Member has DM diagnosis, declined medications and was controlling with diet and exercise. His HbA1c while inpatient is 7.7%. I educated on physiology of T2D, managing with medications, monitoring
BG, nutrition, and activity.
Member currently taking Glipizide while inpatient, I educated on mechanism of action and if he is taking upon d/c educated on administering 30 minutes before first meal unless otherwise instructed by provider.
Discussed normal target glucose ranges and a monitoring schedule fasting preprandial in AM and 2 hours postprandial. I reinforced signs of hyperglycemia, hypoglycemia and hypoglycemia protocol; BS parameters and recommended HbA1c goals, written
material provided. I educated and reviewed using [employer] glucometer, member acknowledged understanding with a self-demonstration of checking BS.
Encouraged patient to follow up with his PCP for post d/c appointment and to monitor medication and blood glucose levels.
Member has appt with new PCP upon discharge, declined for DM team to send prescription to pharmacy for test strips. He will discuss with his PCP, considering CGM. Patient declined IP RD consult, is currently working with RD. Information
provided on the outpatient DSME program. Patient verbalized understanding.
[2024-11-29 12:32] LABS: Glucose - Point of Care 130 mg/dl (70-99)
[2024-11-29] MEDS: STERILE WATER FOR INJECTION 10 ML IV (12:52)
[2024-11-29] MEDS: ROCEPHIN 1000 MG IV (12:53)
[2024-11-29] MEDS: MOTRIN 800 MG PO (14:33)
--- NOTE | 2024-11-29 14:52 | CM ---
Met with patient and his who was at bedside. He stated that he is feeling better and is hoping that he can be discharged soon. He confirmed he is at his functional baseline.
Plan: Case management will continue to follow and assist with discharge planning. Home when stable.
[2024-11-29 15:04] VITALS: BP 150/79
[2024-11-29 17:37] LABS: Glucose - Point of Care 113 mg/dl (70-99)
[2024-11-29] MEDS: LOVENOX 40 MG SC (17:39)
[2024-11-29] MEDS: TYLENOL 650 MG PO (20:43)
[2024-11-29] MEDS: BENADRYL 50 MG PO (20:43)
[2024-11-29] MEDS: MELATONIN 5 MG PO (20:44)
[2024-11-29 21:19] LABS: Glucose - Point of Care 142 mg/dl (70-99)
[2024-11-29 23:29] VITALS: BP 121/63
[2024-11-30 08:10] LABS: Glucose - Point of Care 125 mg/dl (70-99)
[2024-11-30] MEDS: CRESTOR 5 MG PO (08:22)
[2024-11-30] MEDS: GLUCOTROL 5 MG PO (08:22)
[2024-11-30] MEDS: PROSCAR 5 MG PO (08:22)
[2024-11-30] MEDS: ALTACE 5 MG PO (08:23)
[2024-11-30] MEDS: THERAGRAN 1 TABLET PO (08:23)
[2024-11-30] MEDS: FLOMAX 0.4 MG PO (08:23)
[2024-11-30] MEDS: NOVOLOG FLEXPEN-MODERATE RESISTANCE SC (08:23)
[2024-11-30] MEDS: TYLENOL 650 MG PO (08:24)
[2024-11-30 08:27] VITALS: BP 151/100
--- NOTE | 2024-11-30 09:02 | W.PN.HOSP.TC ---
Today's Communication/Plan
-
Discharge today
Assessment / Plan
Assessment / Plan
64-year-old male past medical history of BPH, PFO, hypertension, hyperlipidemia, migraines, sleep apnea, presenting with fever with headache and bodyaches starting 2 days ago.� Also with blood in the urine.� Denies abdominal pain or nausea or
vomiting.� He has been having hematuria for the past 2 weeks and a cystoscopy Dr. Maynard 5 days ago.� Cystoscopy revealed very enlarged prostate doubt any other abnormalities.
White blood cell count of 29.� Lactic acid 3.6.� COVID and flu negative.� Urinalysis shows blood but otherwise unremarkable.
Patient with sepsis likely secondary to urinary infection from recent cystoscopy.� IV fluids, urine culture, blood cultures, ceftriaxone.� Urology consulted.��
#Sepsis
#Subacute bacterial prostatitis
Recent cystoscopy 11/20/[address] Maynard showing friable BPH
Patient reports hematuria for a few weeks
Appreciate urology input
Urine cultures growing Klebsiella, sensitive to cefepime and Rocephin
Changed cefepime to Rocephin, leukocytosis and fever resolved
Medically stable for discharge on cefdinir to complete a 14-day course
Follow-up with urology in the office in 1-2 weeks
#Acute urinary retention
#BPH
Continue finasteride and Flomax
Resolved with stopping Detrol and Valium
#Headache
Continue ibuprofen, oxy prn
#hypertension
Continue ramipril
#hyperlipidemia
Continue rosuvastatin
#diabetes
A1C 7.7
Blood sugars improved with starting glipizide 5 mg twice a day, recommend continuing upon discharge
Will also discharge on metformin
#hyponatremia
monitor
#obesity from excess calories
- affects all aspects of care
- encourage healthy lifestyle with healthy diet and exercise for weight loss
#sleep apnea
s/p sleep apnea surgery: Le Forte II
DVT prophylaxis: lovenox sq
Full Code
Updated at bedside 11/27
Physical Exam
General: Obese, no acute distress
HEENT: Normocephalic, Atraumatic, EOMI, MMM
Respiratory: Clear to Auscultation bilaterally
Cardiac: Normal S1/S2, Regular Rate and Rhythm
GI: Soft, Nontender, Nondistended, Normal Bowel Sounds
Extremities: No Clubbing, Cyanosis, or Edema
Neuro: Nonfocal/Grossly Intact
Anticipated Discharge: Today
Subjective/Interval History
-
Date of Service: November 30, 2024
Patient feels better today. He has been able to void. No fever, no vomiting. He is eager for discharge.
Objective Data
-
Vital Signs:
Vital Signs
Temp Pulse Resp BP Pulse Ox
98 F 76 20 151/100 95
11/30/24 08:27 11/30/24 08:27 11/30/24 08:27 11/30/24 08:27 11/30/24 08:27
I&O
11/29/24 11/30/24 12/01/24
06:59 06:59 06:59
Intake Total 540 / 540 1620 / 1620
Output Total 900 / 900 850 / 850
Balance -360 / -360 770 / 770
--- NOTE | 2024-11-30 10:34 | W.DCSUMMARY ---
Discharge Summary
Discharge Data
Date of Admission: 11/26/24
Date of Discharge: 11/30/24
-
Pending Results: No
Hospital Course
Discharge diagnosis:
Sepsis
Subacute bacterial prostatitis
Recent cystoscopy
Acute urinary retention
Benign prostatic hypertrophy
Diabetes
Hyponatremia
Headache
Essential hypertension
Hyperlipidemia
Obstructive sleep apnea
Obesity due to excess calories
Consults: Urology
Hospital course:
64-year-old male with a past medical history of PFO, hypertension, hyperlipidemia, migraines, sleep apnea, diabetes and BPH status post recent cystoscopy on 11/20/[address] Maynard was admitted for sepsis secondary to subacute bacterial prostatitis.
Patient was seen in conjunction with urology. He was treated with cefepime. Urine cultures grew out Klebsiella, sensitive to cefepime and Rocephin. He was transitioned from cefepime to Rocephin. His leukocytosis resolved.
Patient has type 2 diabetes, hemoglobin A1c is 7.7. He is not currently on any medications for his diabetes. He was started on glipizide 5 mg twice a day, which he can continue upon discharge. His blood sugars improved. He is also discharged on
metformin 500 mg twice a day.
Patient's hospital course was complicated by acute urinary retention. He required straight cath a few times. He was on Proscar for his BPH. Urology added Flomax. By the following day, he was able to void on his own. He is medically stable for
discharge on cefdinir to complete a 14-day course. He needs to follow-up with his usual urologist in the office in 1-2 weeks.
Disposition: Home self-care
Discharge planning: Required 43 minutes medically stable
Discharge Plan
-
Patient Disposition: Home (Routine Discharge)
Discharge Diagnosis/Procedures: Acute bacterial prostatitis, recent cystoscopy, benign prostatic hypertrophy, type 2 diabetes hemoglobin A1c 7.7
Condition: Fair
Diet: Diabetic, Carb Controlled
Activity: As tolerated
Driving Restrictions: As prior to admission
Activity Restrictions/Additional Instructions:
Recommend you start taking metformin and continue glipizide for your diabetes.
Metformin can cause GI upset, recommend starting 1 tablet once a day for 7 days, then 1 tablet twice a day.
Take your antibiotics as directed, follow-up with Dr. Maynard in the office in 1-2 weeks, and your primary care doctor in 1 week.
Referrals:
Gorge Maynard MD [Active] - in one to two weeks
UNKNOWN - PT DOES,NOT KNOW [Family Provider] -
Prescriptions:
New
tamsulosin 0.4 mg Capsule
0.4 mg PO DAILY Qty: 30 0RF
glipizide 5 mg Tablet
5 mg PO BID@0800,1700 Qty: 60 0RF
cefdinir 300 mg capsule
300 mg PO BID 10 Days Qty: 20 0RF
metformin 500 mg tablet
500 mg PO BID Qty: 60 0RF
Continued
calcium polycarbophil [FiberCon] 625 mg Tablet
650 mg PO DAILY
finasteride 5 mg Tablet
5 mg PO HS
rosuvastatin 5 mg Tablet
5 mg PO HS
PhytoMulti 3-3-200 mg Tablet
1 tab PO DAILY
Pro [place] Curcumin
1 tab PO TID
ramipril 5 mg Capsule
5 mg PO HS
diphenhydramine HCl 50 mg/30 mL Liquid
50 mg PO HS PRN (Reason: sleep)
Discharge Orders:
Discharge Patient (As Directed); Ordered 11/30/24
Ordered By: Jos De Jesus
Discharge Date and Time
Discharge Date/Time: 11/30/24 11:45
Print Language: TAMAZIGHT
[2024-11-30] MEDS: OMNICEF 300 MG PO (11:28)
[2024-11-30 11:40] VITALS: BP 148/82
== END 2024-11-30 11:45 | disposition home or self-care (01) | DRG 872 ==
LOC: 3 WEST ACU 15:36
PROVIDERS: Nurse Practitioner Family; Student in an Organized Health Care Education/Training Program; ADMITTING PHYSICIAN Hospitalist; ATTENDING PHYSICIAN Family Medicine; CONSULT PHYSICIAN Specialist; EMERGENCY PHYSICIAN Student in an Organized Health Care Education/Training Program
DX: A41.59 Other Gram-negative sepsis (principal); E87.1 Hypo-osmolality and hyponatremia; Q21.12 Patent foramen ovale; N41.1 Chronic prostatitis; E11.9 Type 2 diabetes mellitus without complications; E78.00 Pure hypercholesterolemia, unspecified; F41.9 Anxiety disorder, unspecified; G43.909 Migraine, unspecified, not intractable, without status migrainosus; G47.33 Obstructive sleep apnea (adult) (pediatric); I10 Essential (primary) hypertension; N40.1 Benign prostatic hyperplasia with lower urinary tract symptoms; R33.8 Other retention of urine; E66.09 Other obesity due to excess calories; Z79.899 Other long term (current) drug therapy; Z68.35 Body mass index [BMI] 35.0-35.9, adult; Z11.52 Encounter for screening for COVID-19
CPT/HCPCS: 80048; 80053; 81003; 81015; 82962; 83036; 83605; 83735; 85025; 85027; 87040; 87077; 87086; 87186; 87502; 87811; 96361; 96374; 96375; 99285

== ENCOUNTER 2024-12-16 06:25 | Day surgery (SDC) | payer BC, SELFPAY ==
[2024-12-16 07:45] LABS: Glucose - Point of Care 106 mg/dl (70-99)
== END 2024-12-16 09:45 | disposition home or self-care (01) ==
LOC: GI 06:25
PROVIDERS: ATTENDING PHYSICIAN Internal Medicine Gastroenterology
DX: Z12.11 Encounter for screening for malignant neoplasm of colon (principal); D12.3 Benign neoplasm of transverse colon; K63.5 Polyp of colon; K57.30 Diverticulosis of large intestine without perforation or abscess without bleeding; Q43.8 Other specified congenital malformations of intestine; K64.0 First degree hemorrhoids; Z86.0100 Personal history of colon polyps, unspecified
CPT/HCPCS: 45385; 45380; 88305; 82962

== ENCOUNTER 2025-02-07 06:16 | Day surgery (SDC) | payer BC, SELFPAY ==
[2025-02-07 07:05] VITALS: BMI 34.1
[2025-02-07 07:05] LABS: Glucose - Point of Care 97 mg/dl (70-99)
[2025-02-07 07:06] VITALS: BMI 34.1
[2025-02-07 07:08] VITALS: BP 128/85
[2025-02-07 09:11] VITALS: BP 129/58
[2025-02-07 09:15] VITALS: BP 157/90
[2025-02-07 09:30] VITALS: BP 135/77
== END 2025-02-07 09:49 | disposition home or self-care (01) ==
LOC: GI 06:16
PROVIDERS: ATTENDING PHYSICIAN Internal Medicine Gastroenterology
DX: Z12.11 Encounter for screening for malignant neoplasm of colon (principal); D12.2 Benign neoplasm of ascending colon; K64.0 First degree hemorrhoids; Z86.0100 Personal history of colon polyps, unspecified; Z98.890 Other specified postprocedural states
CPT/HCPCS: 45385; 88305; 82962

== ENCOUNTER → 2025-04-21 13:47 | Outpatient (REF) | payer BC, SELFPAY | LOC: RAD 13:47 | PROVIDERS: ATTENDING PHYSICIAN Internal Medicine | DX: J18.9 Pneumonia, unspecified organism (principal) | CPT/HCPCS: 71046 ==

== ENCOUNTER 2025-05-31 18:34 | Inpatient (IN) | payer BC, SELFPAY ==
[2025-05-31] VITALS (7 sets, daily range): BP systolic 136–156; BP diastolic 61–88; BMI 37.6; BMI 36.7
[2025-05-31 13:45] LABS: Hematocrit 45.2 % (39.0-52.0); Hemoglobin 15.3 g/dL (13.0-18.0); Mean Corp Hgb Conc. 33.8 g/dL (33.0-37.0); Mean Corpuscular Volume 88.1 fL (80.0-94.0); Nucleated Red Blood Cells % 0 % (-); Platelet Count 282 10^3/uL (130-400); Red Cell Dist. Width 13.7 % (11.5-14.5)
[2025-05-31 14:01] LABS: ALT (SGPT) 27 U/L (0-50); AST (SGOT) 19 U/L (17-59); Albumin 4.6 g/dl (3.5-5.0); Alkaline Phosphatase 75 U/L (38-126); Blood Urea Nitrogen 15 mg/dl (9-20); Calcium 10.8 mg/dl (8.4-10.2); Carbon Dioxide 24 mmol/L (22-30); Chloride 105 mmol/L (98-107); Estimated Creatinine Clearance > 125 ml/min; Glucose 114 mg/dl (70-99); Potassium 4.4 mmol/L (3.5-5.1); Sodium 137 mmol/L (135-145); Total Protein 7.3 g/dl (6.3-8.2); eGFR > 60.00
[2025-05-31] MEDS: NSS 1000 IV ×2 (14:03→21:57)
--- NOTE | 2025-05-31 14:23 | ED.GENMED ---
History of Present Illness
<Escobar Rose PA-C - Last Filed: 05/31/25 14:28>
General
Chief Complaint: Fever
Source: patient
Exam Limitations: none
Time Seen by Provider: 05/31/25 13:37
History of Present Illness
History of Present Illness:
65-year-old male with history of xky-thpiokr-refpydujs diabetes, BPH, hypertension presents with onset of fatigue myalgias rigors and fever today. Temperature at home was 102. He notes everything hurts including his skin. He also noted that there
was blood in his urine when he urinated earlier today. His prior kidney stone denies any pain in his abdomen or flank. He denies any pain cough or shortness of breath. He does note a recent trip back from [facility] about a week ago.
Past History
<Escobar Rose PA-C - Last Filed: 05/31/25 14:28>
Past History
ED Past Medical History: HTN, Hypercholesterolemia, Other (Migraines and sleep apnea) and Other (Patent foramen ovale)
ED Past Surgical History: Other (Surg for sleep apnea)
Social History
Tobacco: Non-smoker
Alcohol: None
Personal:
Living: with family
Employment: Employed
Family History
Family History: Hypertension and Other (Patient has no family history of cerebral aneurysms or subarachnoid hemorrhage. Patient has no personal history of connective tissue disease or polycystic kidney disease.); Negative Early CAD or Sudden
Phy Exam
<Escobar Rose PA-C - Last Filed: 05/31/25 14:28>
Physical Exam
Physical Exam:
General: Well-developed male no acute respiratory distress
HEENT: Normocephalic atraumatic
Heart: Tachycardic but regular
Lungs: Clear no wheeze
Abdomen is soft nontender nondistended
Ext: no cyanosis or edema.
Skin: warm, no rash
Sepsis
<Escobar Rose PA-C - Last Filed: 05/31/25 14:28>
Sepsis Screen
Sepsis Screen: Possible Sepsis
Date: 05/31/25
Time: 14:23
<Miquel Lynn PA-C - Last Filed: 05/31/25 17:46>
Sepsis Screening
Sepsis Assessment: Sepsis
Sepsis Screen
Sepsis Screen: Sepsis
Date: 05/31/25
Time: 17:46
Course
<Escobar Rose PA-C - Last Filed: 05/31/25 14:28>
Orders/Labs/Results
Orders:
Orders
05/31/25 10:25
Straight cath- Treatment ONCE
05/31/25 13:11
Complete Blood Count/With Diff Urgent
Comprehensive Metabolic Panel Urgent
Lactic Acid Q4H
Comment: ON ICE, CANCEL 2ND ORDER IF FIRST LACTIC ACID LEVEL <2
Urinalysis Reflex To Culture Urgent
Date Specimen was Collected: 05/31/25
Time Specimen was Collected: 10:25
Urine Microscopic Reflex Cult Urgent
Blood Culture Q20M
RAYRAY Source: Blood/Venous
Specimen Description:
Comment: Urgent from separate sites. If patient screens positive for possible sepsis
Blood Culture Q20M
RAYRAY Source: Blood/Venous
Specimen Description:
Comment: Urgent from separate sites. If patient screens positive for possible sepsis
Urine Culture Urgent
RAYRAY Source: U
Specimen Description:
Date Specimen was Collected: 05/31/25
Time Specimen was Collected: 10:25
05/31/25 13:58
0.9% Sodium Chloride 1000 ml [Nss] 1,000 ml IV BOLUS
05/31/25 13:59
CR Chest - 2 Views Urgent
Comment:
Reason For Exam: fever
05/31/25 14:01
COVID-19 Antigen Urgent
Source: Nasal Swab
Influenza A+B Rapid Molecular Urgent
RAYRAY Source: Nasal Swab
Specimen Description:
05/31/25 14:27
Ibuprofen [Motrin] 600 mg PO NOW STA
05/31/25 17:42
CefTRIAXone [Rocephin] 1,000 mg IV NOW STA
Abnormal Lab Results
05/31/25
13:11
WBC 19.7 H 10^3/uL
(4.8-10.8)
Abs Immat Gran (auto) 0.1 H 10^3/uL
(0-0.05)
Absolute Neuts (auto) 16.2 H 10^3/uL
(1.4-6.5)
Absolute Lymphs (auto) 1.0 L 10^3/uL
(1.2-3.4)
Absolute Monos (auto) 2.2 H 10^3/uL
(0.1-0.6)
Immature Gran % 0.6 H %
(0-0.5)
Neutrophils % 82.6 H %
(42.2-75.2)
Lymphocytes % 5.3 L %
(20.5-51.1)
Monocytes % 10.9 H %
(1.7-9.3)
Glucose 114 H mg/dl
(70-99)
Calcium 10.8 H mg/dl
(8.4-10.2)
Ur Occult Blood Reflex 3+ A
(Negative)
Urine Nitrite (Reflex) Positive A
(Negative)
Leukocyte Esterase Rfl 2+ A
(Negative)
Urine RBC 3-6 A /HPF
(0-2)
Urine WBC (Reflex) 16-20 A /HPF
(0-5)
Urine Bacteria (Reflex) Many A
(Negative)
Urine Albumin (Reflex) 1+ A
(Neg - Trace)
05/31/25 13:11
05/31/25 13:11
Vital Signs
Initial and Last Documented VS:
Initial Vital Signs
Temp Pulse Resp BP Pulse Ox
99 F 106 18 146/88 96
05/31/25 10:22 05/31/25 10:22 05/31/25 10:22 05/31/25 10:22 05/31/25 10:22
Last Documented Vital Signs
Temp Pulse Resp BP Pulse Ox
99.3 F 103 29 137/75 95
05/31/25 13:30 05/31/25 14:45 05/31/25 14:45 05/31/25 14:00 05/31/25 14:27
<Miquel Lynn PA-C - Last Filed: 05/31/25 17:46>
Orders/Labs/Results
Orders:
Orders
05/31/25 10:25
Straight cath- Treatment ONCE
05/31/25 13:11
Complete Blood Count/With Diff Urgent
Comprehensive Metabolic Panel Urgent
Lactic Acid Q4H
Comment: ON ICE, CANCEL 2ND ORDER IF FIRST LACTIC ACID LEVEL <2
Urinalysis Reflex To Culture Urgent
Date Specimen was Collected: 05/31/25
Time Specimen was Collected: 10:25
Urine Microscopic Reflex Cult Urgent
Blood Culture Q20M
RAYRAY Source: Blood/Venous
Specimen Description:
Comment: Urgent from separate sites. If patient screens positive for possible sepsis
Blood Culture Q20M
RAYRAY Source: Blood/Venous
Specimen Description:
Comment: Urgent from separate sites. If patient screens positive for possible sepsis
Urine Culture Urgent
RYARAY Source: U
Specimen Description:
Date Specimen was Collected: 05/31/25
Time Specimen was Collected: 10:25
05/31/25 13:58
0.9% Sodium Chloride 1000 ml [Nss] 1,000 ml IV BOLUS
05/31/25 13:59
CR Chest - 2 Views Urgent
Comment:
Reason For Exam: fever
05/31/25 14:01
COVID-19 Antigen Urgent
Source: Nasal Swab
Influenza A+B Rapid Molecular Urgent
RAYRAY Source: Nasal Swab
Specimen Description:
05/31/25 14:27
Ibuprofen [Motrin] 600 mg PO NOW STA
05/31/25 17:42
CefTRIAXone [Rocephin] 1,000 mg IV NOW STA
Abnormal Lab Results
05/31/25
13:11
WBC 19.7 H 10^3/uL
(4.8-10.8)
Abs Immat Gran (auto) 0.1 H 10^3/uL
(0-0.05)
Absolute Neuts (auto) 16.2 H 10^3/uL
(1.4-6.5)
Absolute Lymphs (auto) 1.0 L 10^3/uL
(1.2-3.4)
Absolute Monos (auto) 2.2 H 10^3/uL
(0.1-0.6)
Immature Gran % 0.6 H %
(0-0.5)
Neutrophils % 82.6 H %
(42.2-75.2)
Lymphocytes % 5.3 L %
(20.5-51.1)
Monocytes % 10.9 H %
(1.7-9.3)
Glucose 114 H mg/dl
(70-99)
Calcium 10.8 H mg/dl
(8.4-10.2)
Ur Occult Blood Reflex 3+ A
(Negative)
Urine Nitrite (Reflex) Positive A
(Negative)
Leukocyte Esterase Rfl 2+ A
(Negative)
Urine RBC 3-6 A /HPF
(0-2)
Urine WBC (Reflex) 16-20 A /HPF
(0-5)
Urine Bacteria (Reflex) Many A
(Negative)
Urine Albumin (Reflex) 1+ A
(Neg - Trace)
05/31/25 13:11
05/31/25 13:11
Vital Signs
Initial and Last Documented VS:
Initial Vital Signs
Temp Pulse Resp BP Pulse Ox
99 F 106 18 146/88 96
05/31/25 10:22 05/31/25 10:22 05/31/25 10:22 05/31/25 10:22 05/31/25 10:22
Last Documented Vital Signs
Temp Pulse Resp BP Pulse Ox
99.3 F 103 29 137/75 95
05/31/25 13:30 05/31/25 14:45 05/31/25 14:45 05/31/25 14:00 05/31/25 14:27
<Escobar Rose PA-C - Last Filed: 05/31/25 14:28>
MDM/Problems Addressed
Differential Diagnosis Includes:
Fever rigors. Tachycardia. Concern for underlying sepsis. Consider UTI versus COVID versus flu versus pneumonia. Labs pending chest x-ray urinalysis pending. Fluids ordered.
<Escobar Rose PA-C - Last Filed: 05/31/25 14:28>
*Pulse Oximetry
SaO2: 95
Oxygen Mode of Delivery: Room air
<Miquel Lynn PA-C - Last Filed: 05/31/25 17:46>
*Pulse Oximetry
Patient hypoxic: no
*Critical Care Note
Total Time (30-74mins, 75-104mins- exclusive of procedures): Not Applicable
<Miquel Lynn PA-C - Last Filed: 05/31/25 17:46>
Update Note
Update Note:
Assumed care of patient from Shasta Stevens PA-C pending urinalysis. UA consistent with UTI, will admit for IV antibiotics, ceftriaxone ordered
ED Attending Note
<Escobar Rose PA-C - Last Filed: 05/31/25 14:28>
-
Portions of this chart may have been created with voice recognition software.� Occasional wrong word or��sound alike� substitutions may have occurred due to the inherent limitations of voice recognition software.
Discharge Plan
Departure
Patient Disposition: Admit
Date of Disposition: 05/31/25
Time of Disposition: 17:45
Admit to: Med/Surg
Presentation/result/management discussed w/ accepting MD/DO: Hospitalist
Discharge Problem:
Urinary tract infection, Sepsis
Prescriptions:
No Action
calcium polycarbophil [FiberCon] 625 mg Tablet
650 mg PO DAILY
finasteride 5 mg Tablet
5 mg PO HS
rosuvastatin 5 mg Tablet
5 mg PO HS
PhytoMulti 3-3-200 mg Tablet
1 tab PO DAILY
Pro [place] Curcumin
1 tab PO TID
ramipril 5 mg Capsule
5 mg PO HS
tamsulosin 0.4 mg Capsule
0.4 mg PO DAILY Qty: 30 0RF
glipizide 5 mg Tablet
5 mg PO BID@0800,1700 Qty: 60 0RF
metformin 500 mg tablet
500 mg PO BID Qty: 60 0RF
Referrals:
Renée Mccallum MD [Family Provider, Internal Medicine]
Interventions
Interventions:
*Risk Screen - Suicide Last Done: 05/31/25 10:22
*General Assessment Last Done: 05/31/25 13:30
*Neglect/Abuse Screening Last Done: 05/31/25 10:22
*ED- Fall Risk Assessment Last Done: 05/31/25 13:30
*ED COVID-19 Vaccine History Last Done: 05/31/25 13:30
ED- Neurological Assessment Last Done: 05/31/25 13:30
ED-Skin Assessment Last Done: 05/31/25 13:30
Discharge Date and Time
Print Language: NEPALI
[2025-05-31 14:31] LABS: COVID-19 Antigen Negative (Negative)
[2025-05-31] MEDS: MOTRIN 600 MG PO (14:44)
[2025-05-31 17:28] LABS: Urine Character Clear (Clear)
[2025-05-31 17:36] LABS: Urine White Cell 16-20 /HPF (0-5)
[2025-05-31] MEDS: ROCEPHIN 1000 MG IV (17:49)
--- NOTE | 2025-05-31 17:58 | HPS.HSE ---
Family Physician
-
Family Physician: Renée Mccallum
Chief Complaint
-
ever, rigors, fatigue and myalgia
History of Present Illness
Patient is a 65-year-old male with past medical history significant for hypertension, hyperlipidemia, diabetes and BPH who presented to [facility] ED for evaluation of fever, rigors, fatigue and myalgia. Patient reports waking around 0700 this morning
with symptoms and reported that he was normal when he went to bed last night. He does note a recent 10 day trip to [place] [place]. He reports some hematuria but states this is not abnormal he has been having some intermittently and is schedule for a TURP
soon with urology. Denies cough, shortness of breath, chest pain, nausea, vomiting, constipation or diarrhea.
Medical History
Past Medical History
Past Medical History: Reports Other
Additional Past Medical History:
hypertension
hyperlipidemia
diabetes
BPH
prediabetic
migraines
sleep apnea
Past Surgical History: Reports Other
Additional Past Surgical History:
sleep apnea surgery: [place]
Social History
Tobacco: Non-smoker
Alcohol: None
Drug: None
Personal:
Living: With Family
Employment: Employed
Family History
Family History: Other (Mother: HTN, migraines; Sister: breast cancer )
Allergies / Home Medications
Allergies reflects when Allergies were last updated in [employer].
Home Medications with original date entered in [employer]
Allergy/Medication List:
Allergies
Allergy/AdvReac Type Severity Reaction Status Date / Time
bee venom protein (honey bee) Allergy Tongue Verified 02/07/25 06:52
Swelling
iodine (Iodine) Allergy Hives Verified 02/07/25 06:52
prochlorperazine edisylate Allergy Itching/makes Verified 02/07/25 06:52
(From Compazine) him crazy
prochlorperazine maleate Allergy Itching/makes Verified 02/07/25 06:52
(From Compazine) him crazy
Home Medications
Pro Wilkinson Curcumin 1 tab PO TID Supplement 11/26/24
calcium polycarbophil 625 mg tablet (FiberCon) 650 mg PO DAILY Constipation 11/26/24
finasteride 5 mg tablet 5 mg PO HS Urinary Issue 11/26/24
[id number]-lnmwapqp-mteyiifl 3 mg-lutein 3 mg-herbal no219 200 mg tablet (PhytoMulti) 1 tab PO DAILY Supplement 11/26/24
ramipril 5 mg capsule 5 mg PO HS Blood Pressure 11/26/24
rosuvastatin 5 mg tablet 5 mg PO HS High Cholesterol 11/26/24
glipizide 5 mg tablet 5 mg PO BID@0800,1700 #60 tabs 11/30/24
metformin 500 mg tablet 500 mg PO BID #60 tabs 11/30/24
tamsulosin 0.4 mg capsule 0.4 mg PO DAILY #30 caps 11/30/24
Review of Systems
-
History Source: Patient
Constitutional: Reports Fever and Chills
EENT: Reports No Symptoms
Respiratory: Denies Cough or Trouble Breathing
Cardiac: Denies Chest Pain, Diaphoresis or Palpitations
Abdomen/GI: Denies Nausea, Vomiting or Diarrhea
: Reports Bleeding; Denies Dysuria, Frequency, Flank Pain, Incontinence, Difficulty Voiding or Urgency
Musculoskeletal: Reports Muscle Pain (generalized muscle aches ); Denies Joint Pain, Joint Swelling, Muscle Stiffness or Edema
Skin: Denies Rash
Neurological: Denies Dizzy, Headache, Weakness or Numbness
Endocrine: Denies Polyuria or Polydipsia
Psych: Reports Calm
Physical Exam
Vital Signs
Vital Signs
Temp Pulse Resp BP Pulse Ox
99.3 F 103 29 137/75 95
05/31/25 13:30 05/31/25 14:45 05/31/25 14:45 05/31/25 14:00 05/31/25 14:27
Physical Exam
General: Well Developed, Well Nourished, No Apparent Distress, Comfortable, Conversant and Morbidly Obese
HEENT: NormoCephalic, Moist mucous membranes and Atraumatic
Respiratory: Clear and Non Labored Respirations
Cardiac: S1/S2 and Regular Rhythm; No Murmur, Rub or Gallop
Breast: Deferred by me
GI: Soft, Non Tender, Non Distended and Normal Bowel Sounds; No Organomegaly
Rectal: Deferred by Provider
Genito-urinary: Deferred by me
Musculoskeletal: No Clubbing, No Cyanosis and No Edema
Skin: Warm and IV/Catheter Site
Neuro: Awake, AO x 3 and Nonfocal/grossly intact
Hematologic/Lymphatic: No Lymphadenopathy
Psych: Calm and Intact Judgment/Insight
Laboratory Results
-
05/31/25 13:11
05/31/25 13:11
Laboratory Results
Lactic Acid Cancelled 05/31/25 14:30
Total Bilirubin 0.5 mg/dl (0.2-1.3) 05/31/25 13:11
AST 19 U/L (17-59) 05/31/25 13:11
ALT 27 U/L (0-50) 05/31/25 13:11
Alkaline Phosphatase 75 U/L (38-126) 05/31/25 13:11
Data Reviewed
-
Diagnostic Radiology: Report Reviewed by me (CXR: No acute cardiopulmonary abnormality.)
Lab Data: Labs Reviewed by me (WBC 19.7, neut 82.6)
Impression/Plan
-
IMPRESSION/PLAN:
#sepsis likely 2/2 UTI
WBC 19.7, neut 82.6
UA: indicative of UTI
Urine Cx: pending
Blood Cx: pending
Covid: negative
Influenza: negative
CXR: No acute cardiopulmonary abnormality.
- Admit to med/surg
- IV ceftriaxone
- IVF NSS 100cc/hr
- supportive care
#hypercalcinemia
Ca + 10.8
- check PTH
- trend BMP
#hypertension
- continue ramipril
#hyperlipidemia
- continue rosuvastatin
#diabetes
- AccuCheck AC & HS
- SSI
- hold glipizide and metformin
#BPH
- continue tamsulosin
Code status: full code
DVT prophylaxis: lovenox sq
--- NOTE | 2025-05-31 18:45 | W.PN.UPDATE ---
Update Note
Progress Note Update
This note serves as an addendum to the H&P by pattern checker Anuj Lindsey
HPI
65M HX HTN, HLD, DM , BPH pw fever, rigors, fatigue and myalgia
- reports waking around 0700 this morning with symptoms and reported that he was normal when he went to bed last night.
- a recent 10 days trip to [facility].
- some hematuria but states this is not abnormal he has been having some intermittently
- pending for a TURP soon with urology.
Denies cough, shortness of breath, chest pain, nausea, vomiting, constipation or diarrhea.
Relevant VS
Temp Pulse Resp BP Pulse Ox
99.3 F 103 29 137/75 95
05/31/25 13:30 05/31/25 14:45 05/31/25 14:45 05/31/25 14:00 05/31/25 14:27
PE
Gen: not toxic , looks tired , Class II obesity BMI 37
HEENT:anicteric
Neck: supple
Lungs:CTA
Cor:ST, RRR
Abdomen:�soft , distended , non tender , no CVA
CHIEF OPERATOR LOCK TENDER: NFND
MS:no edema
Psych: appropriate
Relevant Data
05/31/25
13:11
WBC 19.7 H
Abs Immat Gran (auto) 0.1 H
Absolute Neuts (auto) 16.2 H
Absolute Lymphs (auto) 1.0 L
Absolute Monos (auto) 2.2 H
Immature Gran % 0.6 H
Neutrophils % 82.6 H
Lymphocytes % 5.3 L
Monocytes % 10.9 H
Glucose 114 H
Calcium 10.8 H
Ur Occult Blood Reflex 3+ A
Urine Nitrite (Reflex) Positive A
Leukocyte Esterase Rfl 2+ A
Urine RBC 3-6 A
Urine WBC (Reflex) 16-20 A
Urine Bacteria (Reflex) Many A
Urine Albumin (Reflex) 1+ A
ASSESSMENT & PLAN
Sepsis due to complicated male UTI
HX BPH
- WBC 19.7 - trend WCC
- UA: indicative of UTI
- UCx and BCx sent
- NEG Covid: negative
- NEG Influenza A & B
- NEG CXR
- agree with empiric IV ceftriaxone
- IVF NSS 100cc/hr
- supportive care
Hypercalcinemia due to dehydration
Ca + 10.8
- IV hydration and f/u Ca
- trend BMP
Essential HTN
- on PROP ATTENDANT Ramipril
HLD
- c/w rosuvastatin
DMT2
- low SSI
- hold glipizide and metformin
HX BPH
- continue tamsulosin
- pending TURP
Class II obesity BMI 37
- affect all aspects of life
DVT Px: LMWH
Full code
IP MS
[2025-05-31 20:38] LABS: Glucose - Point of Care 206 mg/dl (70-99)
--- NOTE | 2025-05-31 21:15 | PTCARENOTE ---
Patient is c/o severe chills, similar to presentation on arrival to ED -- states that his skin is hurting 'like sunburn' from the chills and is inquiring about additional Motrin dosing. Received one time dose in ED, currently only PRN Tylenol
ordered. Notified TESTING SPECIALIST Sharmila Guerrier of patient request -- awaiting orders for additional dosing. Will provide once verified. Call riddle in reach, will monitor.
[2025-05-31] MEDS: PROSCAR 5 MG PO (21:50)
[2025-05-31] MEDS: CRESTOR 5 MG PO (21:50)
[2025-05-31] MEDS: ALTACE 5 MG PO (21:50)
[2025-05-31] MEDS: MOTRIN 400 MG PO (21:50)
[2025-06-01 00:09] VITALS: BP 140/78
[2025-06-01 03:00] VITALS: BP 140/78
[2025-06-01 06:00] VITALS: BMI 36.8
[2025-06-01] MEDS: NSS 1000 IV ×2 (06:05→16:55)
[2025-06-01 07:10] LABS: Hematocrit 39.9 % (39.0-52.0); Hemoglobin 13.5 g/dL (13.0-18.0); Mean Corp Hgb Conc. 33.8 g/dL (33.0-37.0); Mean Corpuscular Volume 88.7 fL (80.0-94.0); Platelet Count 238 10^3/uL (130-400); Red Cell Dist. Width 13.9 % (11.5-14.5)
[2025-06-01 07:31] LABS: Calcium 9.6 mg/dl (8.4-10.2)
[2025-06-01 07:44] VITALS: BP 132/75
[2025-06-01 07:44] LABS: Blood Urea Nitrogen 15 mg/dl (9-20); Calcium 9.6 mg/dl (8.4-10.2); Carbon Dioxide 23 mmol/L (22-30); Chloride 104 mmol/L (98-107); Estimated Creatinine Clearance > 125 ml/min; Glucose 156 mg/dl (70-99); Potassium 4.3 mmol/L (3.5-5.1); Sodium 134 mmol/L (135-145); eGFR > 60.00
[2025-06-01 07:54] LABS: Glucose - Point of Care 154 mg/dl (70-99)
[2025-06-01] MEDS: FLOMAX 0.4 MG PO (09:24)
[2025-06-01] MEDS: MOTRIN 400 MG PO ×2 (09:24→16:54)
[2025-06-01] MEDS: METAMUCIL, KONSYL 1 PACKET PO (09:24)
[2025-06-01 11:42] LABS: Glucose - Point of Care 161 mg/dl (70-99)
--- NOTE | 2025-06-01 13:33 | W.PN.HOSP.TC ---
Today's Communication/Plan
-
see outlined plan
Assessment / Plan
Assessment / Plan
Assessment:
Sepsis POA (leukocytosis, tachycardia) secondary to complicated UTI (UTI in male)
- continue Rocephin, pending cultures
- continue IVF (lactate normal on admission)
Hx of BPH
- for TURP in 2 weeks - may need to reschedule (follows with [facility])
- continue Flomax/Finasteride
Hypercalcemia
- resolved
Essential HTN - continue NOREEN
HLD - statin
Type 2 DM
- holding oral meds
- continue SSI
DVT ppx: Lovenox
Code: Full
Anticipated Discharge: 24 - 48 hours
Subjective/Interval History
-
Date of Service: June 01, 2025
resting comfortably, no complaints except poor sleep last evening
Objective Data
-
Labs:
Laboratory Results
06/01/25 06/01/25
06:47 06:47
WBC 19.3 H
Hgb 13.5
Hct 39.9
Plt Count 238
Sodium 134 L
Potassium 4.3
Chloride 104
Carbon Dioxide 23
BUN 15
Creatinine 0.9
Glucose 156 H
Calcium 9.6 9.6
Vital Signs:
Vital Signs
Temp Pulse Resp BP Pulse Ox
99.0 F 76 17 132/75 99
06/01/25 07:44 06/01/25 07:44 06/01/25 07:44 06/01/25 07:44 06/01/25 07:44
I&O
05/31/25 06/01/25 06/02/25
06:59 06:59 06:59
Intake Total 2199 / 0
Balance 2200 / 2200
Physical Exam
-
General: No Apparent Distress
HEENT: Normocephalic and Atraumatic
Respiratory: Negative Wheezes
Cardiac: Regular Rhythm and S1/S2
GI: Soft and Nontender
Musculoskeletal: No Edema
Neuro: AO x 3
Psych: Calm
Data Reviewed
-
Total Time Spent with Patient (in minutes): 42
Labs: Labs Reviewed by me
[2025-06-01 15:10] VITALS: BP 131/68
[2025-06-01] MEDS: ROCEPHIN 2000 MG IV (15:23)
[2025-06-01] MEDS: STERILE WATER FOR INJECTION 20 ML IV (15:24)
--- NOTE | 2025-06-01 16:19 | CM ---
Alert awake oriented patient who lives with KAUR in a 2 story home with 1 step to enter and 24 steps to bed bathroom. Pt is independent in all ADLs and driving. Offered VN he declined need. No adaptive devices.Offered VN declined need.
NO VN/SNF hx
Pharmacy [facility] on [address] Mccallum
PLAN Home no needs
[2025-06-01 16:46] LABS: Glucose - Point of Care 121 mg/dl (70-99)
[2025-06-01] MEDS: NOVOLOG FLEXPEN-LOW RESISTANCE SC (16:55)
[2025-06-01] MEDS: LOVENOX 40 MG SC (16:56)
[2025-06-01 21:24] LABS: Glucose - Point of Care 167 mg/dl (70-99)
[2025-06-01] MEDS: CRESTOR 5 MG PO (22:00)
[2025-06-01] MEDS: ALTACE 5 MG PO (22:00)
[2025-06-01] MEDS: MELATONIN 5 MG PO (22:04)
[2025-06-01] MEDS: PROSCAR 5 MG PO (22:05)
[2025-06-01 23:00] VITALS: BP 141/81
[2025-06-02] MEDS: NSS 1000 IV (02:02)
[2025-06-02] MEDS: MOTRIN 400 MG PO ×2 (02:03→13:10)
[2025-06-02 03:55] VITALS: BP 127/75
[2025-06-02 04:02] LABS: Glucose - Point of Care 145 mg/dl (70-99)
[2025-06-02] MEDS: ATIVAN 0.5 MG PO (04:08)
--- NOTE | 2025-06-02 04:10 | W.PN.UPDATE ---
Update Note
Progress Note Update
RN reports patient feeling very anxious and hasn't slept in 72 hours. patient received melatonin and hasn't helped. 127/75 HR: 77 Temp: 98.4 at 94% on RA RR 18.
Patient continuos to be anxious will give Ativan 0.5mg POx1 now.
[2025-06-02 06:00] VITALS: BMI 36.6
[2025-06-02 06:38] LABS: Hematocrit 36.9 % (39.0-52.0); Hemoglobin 12.7 g/dL (13.0-18.0); Mean Corp Hgb Conc. 34.4 g/dL (33.0-37.0); Mean Corpuscular Volume 88.1 fL (80.0-94.0); Platelet Count 241 10^3/uL (130-400); Red Cell Dist. Width 13.8 % (11.5-14.5)
[2025-06-02 07:04] LABS: Blood Urea Nitrogen 11 mg/dl (9-20); Calcium 9.3 mg/dl (8.4-10.2); Carbon Dioxide 22 mmol/L (22-30); Chloride 107 mmol/L (98-107); Estimated Creatinine Clearance > 125 ml/min; Glucose 141 mg/dl (70-99); Potassium 4.2 mmol/L (3.5-5.1); Sodium 135 mmol/L (135-145); eGFR > 60.00
[2025-06-02 07:12] VITALS: BP 135/80
[2025-06-02 07:57] LABS: Glucose - Point of Care 129 mg/dl (70-99)
[2025-06-02] MEDS: METAMUCIL, KONSYL 1 PACKET PO (09:08)
[2025-06-02] MEDS: FLOMAX 0.4 MG PO (09:08)
[2025-06-02] MEDS: NOVOLOG FLEXPEN-LOW RESISTANCE SC ×3 (09:09→17:04)
--- NOTE | 2025-06-02 09:48 | W.PN.HOSP.TC ---
Today's Communication/Plan
-
continue Rocephin, pending final cultures
dc IV fluids
Assessment / Plan
Assessment / Plan
Assessment:
Sepsis POA (leukocytosis, tachycardia) secondary to complicated UTI (UTI in male)
- continue Rocephin day 3, pending cultures
- dc IVF
Hx of BPH
- for TURP in 2 weeks - may need to reschedule (follows with [facility])
- continue Flomax/Finasteride
Hypercalcemia
- resolved
Essential HTN - continue NOREEN
HLD - statin
Type 2 DM
- holding oral meds
- continue SSI
DVT ppx: Lovenox
Code: Full
Anticipated Discharge: Within 24 hours
Subjective/Interval History
-
Date of Service: June 02, 2025
did not sleep well - received Ativan at 4 AM and now sleeping
no overnight events
Objective Data
-
Labs:
Laboratory Results
06/02/25
05:43
WBC 11.2 H
Hgb 12.7 L
Hct 36.9 L
Plt Count 241
Sodium 135
Potassium 4.2
Chloride 107
Carbon Dioxide 22
BUN 11
Creatinine 0.7
Glucose 141 H
Calcium 9.3
Vital Signs:
Vital Signs
Temp Pulse Resp BP Pulse Ox
98.4 F 69 17 135/80 96
06/02/25 07:12 06/02/25 07:12 06/02/25 07:12 06/02/25 07:12 06/02/25 07:12
I&O
06/01/25 06/02/25 06/03/25
06:59 06:59 06:59
Intake Total 2199 / 2199 2099 / 2099
Balance 2199 / 2199 2099 / 2099
Physical Exam
-
General: No Apparent Distress
HEENT: Normocephalic and Atraumatic
Respiratory: Negative Wheezes
Cardiac: Regular Rhythm and S1/S2
GI: Soft
Genito-urinary: No Costovertebral Tender
Psych: Calm
Data Reviewed
-
Total Time Spent with Patient (in minutes): 41
Labs: Labs Reviewed by me
[2025-06-02 11:45] LABS: Glucose - Point of Care 132 mg/dl (70-99)
[2025-06-02] MEDS: STERILE WATER FOR INJECTION 20 ML IV (13:10)
[2025-06-02] MEDS: ROCEPHIN 2000 MG IV (13:10)
[2025-06-02 15:30] VITALS: BP 147/75
[2025-06-02 16:54] LABS: Glucose - Point of Care 141 mg/dl (70-99)
[2025-06-02] MEDS: LOVENOX 40 MG SC (17:39)
[2025-06-02 21:46] LABS: Glucose - Point of Care 149 mg/dl (70-99)
[2025-06-02 22:02] VITALS: BP 160/86
[2025-06-02] MEDS: PROSCAR 5 MG PO (22:04)
[2025-06-02] MEDS: AMBIEN 5 MG PO (22:04)
[2025-06-02] MEDS: CRESTOR 5 MG PO (22:04)
[2025-06-02] MEDS: ALTACE 5 MG PO (22:04)
[2025-06-02] MEDS: MELATONIN 5 MG PO (22:04)
[2025-06-03 06:21] LABS: Hematocrit 39.6 % (39.0-52.0); Hemoglobin 13.6 g/dL (13.0-18.0); Mean Corp Hgb Conc. 34.3 g/dL (33.0-37.0); Mean Corpuscular Volume 86.8 fL (80.0-94.0); Platelet Count 241 10^3/uL (130-400); Red Cell Dist. Width 13.7 % (11.5-14.5)
[2025-06-03 06:42] LABS: Blood Urea Nitrogen 14 mg/dl (9-20); Calcium 9.9 mg/dl (8.4-10.2); Carbon Dioxide 25 mmol/L (22-30); Chloride 108 mmol/L (98-107); Estimated Creatinine Clearance > 125 ml/min; Glucose 156 mg/dl (70-99); Potassium 4.2 mmol/L (3.5-5.1); Sodium 137 mmol/L (135-145); eGFR > 60.00
[2025-06-03 07:00] VITALS: BP 152/80
[2025-06-03 07:37] LABS: Glucose - Point of Care 159 mg/dl (70-99)
[2025-06-03 08:38] LABS: Glycohemoglobin (HgbA1c) 6.2 % (4.0-5.6)
[2025-06-03] MEDS: FLOMAX 0.4 MG PO (09:08)
[2025-06-03] MEDS: METAMUCIL, KONSYL 1 PACKET PO (09:09)
[2025-06-03] MEDS: NOVOLOG FLEXPEN-LOW RESISTANCE 1 UNITS SC ×2 (09:27→13:21)
--- NOTE | 2025-06-03 09:41 | CM ---
Met with patient at bedside
declines VN
PLAN: Home, no needs
to transport
[2025-06-03 11:44] LABS: Glucose - Point of Care 187 mg/dl (70-99)
--- NOTE | 2025-06-03 13:22 | W.PN.HOSP.TC ---
Today's Communication/Plan
-
d/c home
Assessment / Plan
Assessment / Plan
Sepsis POA (leukocytosis, tachycardia) secondary to complicated UTI (UTI in male)
- urine cs growing Klebsiella, partially drug resistant
- Patient discussed with primary urologist who has recommended patient to remain on antibiotic till procedure which is in 2 weeks, will provide Omnicef for 15 days and primary urologist can extend it further based on need.
Hx of BPH
- for TURP in 2 weeks -patient is discussed with urology and will decide if procedure needs to be delayed
- continue Flomax/Finasteride
Hypercalcemia
- resolved
Essential HTN - continue NOREEN
HLD - statin
Type 2 DM
- holding oral meds
- continue SSI
DVT ppx: Lovenox
Code: Full
More than 30 minutes spent in discharge including
Final examination of the patient
Summarizing hospital stay
Instructions for continuing care to all relevant caregivers
Preparation of discharge records, prescriptions, and referral forms
Total time spent (in minutes): 38 mins
Anticipated Discharge: Today
Subjective/Interval History
-
Date of Service: June 03, 2025
Denies having any issues
Objective Data
-
Labs:
Laboratory Results
06/03/25 06/03/25
06:05 06:06
WBC 7.4
Hgb 13.6
Hct 39.6
Plt Count 241
Sodium 137
Potassium 4.2
Chloride 108 H
Carbon Dioxide 25
BUN 14
Creatinine 0.7
Glucose 156 H
Calcium 9.9
Vital Signs:
Vital Signs
Temp Pulse Resp BP Pulse Ox
98.0 F 70 20 152/80 97
06/03/25 07:00 06/03/25 07:00 06/03/25 07:00 06/03/25 07:00 06/03/25 09:33
I&O
06/02/25 06/03/25 06/04/25
06:59 06:59 06:59
Intake Total 2099 1080 / 1080
Balance 2099 1080 / 1080
Review of Systems
-
Respiratory: Reports No Symptoms
Cardiac: Reports No Symptoms
Abdomen/GI: Reports No Symptoms
Physical Exam
-
HEENT: Negative Oxygen
Respiratory: Negative Other
Cardiac: Regular Rhythm and S1/S2
GI: Soft, Nontender and Nondistended
Neuro: Awake, Alert and Oriented
Psych: Calm
[2025-06-03] MEDS: STERILE WATER FOR INJECTION 20 ML IV (14:00)
[2025-06-03] MEDS: ROCEPHIN 2000 MG IV (14:00)
[2025-06-03 14:48] VITALS: BP 138/76
== END 2025-06-03 15:55 | disposition home or self-care (01) | DRG 872 ==
LOC: 3 WEST ACU 18:34
PROVIDERS: Internal Medicine; Nurse Practitioner Family; Physician Assistant; ADMITTING PHYSICIAN Internal Medicine; ATTENDING PHYSICIAN Hospitalist; EMERGENCY PHYSICIAN Emergency Medicine; FAMILY PHYSICIAN Internal Medicine
DX: A41.9 Sepsis, unspecified organism (principal); N39.0 Urinary tract infection, site not specified; I10 Essential (primary) hypertension; E11.9 Type 2 diabetes mellitus without complications; E66.812 Obesity, class 2; E86.0 Dehydration; D72.829 Elevated white blood cell count, unspecified; B96.1 Klebsiella pneumoniae [K. pneumoniae] as the cause of diseases classified elsewhere; G43.909 Migraine, unspecified, not intractable, without status migrainosus; G47.30 Sleep apnea, unspecified; N40.0 Benign prostatic hyperplasia without lower urinary tract symptoms; E78.5 Hyperlipidemia, unspecified; E83.52 Hypercalcemia; Z68.37 Body mass index [BMI] 37.0-37.9, adult
CPT/HCPCS: 71046; 80048; 80053; 81003; 81015; 82962; 83036; 83605; 83970; 85025; 85027; 87040; 87077; 87086; 87186; 87502; 87811; 96361; 96374; 99284

== ENCOUNTER → 2025-06-12 07:59 | Outpatient (REF) | payer BC, SELFPAY | LOC: RCS 07:59 | PROVIDERS: ATTENDING PHYSICIAN Internal Medicine; FAMILY PHYSICIAN Internal Medicine | DX: R55 Syncope and collapse (principal); I10 Essential (primary) hypertension; R93.1 Abnormal findings on diagnostic imaging of heart and coronary circulation | CPT/HCPCS: 93306 ==

== ENCOUNTER → 2025-06-13 08:04 | Outpatient (REF) | payer BC, SELFPAY | LOC: HWRCS 08:04 | PROVIDERS: ATTENDING PHYSICIAN Internal Medicine; FAMILY PHYSICIAN Internal Medicine | DX: R55 Syncope and collapse (principal); I10 Essential (primary) hypertension; R93.1 Abnormal findings on diagnostic imaging of heart and coronary circulation | CPT/HCPCS: 78452; 93017; A9500 ==

== ENCOUNTER 2025-07-20 11:23 | Emergency (ER) | payer BC, SELFPAY ==
[2025-07-20 11:28] VITALS: BP 132/86
--- NOTE | 2025-07-20 11:53 | ED.GENMED ---
History of Present Illness
General
Chief Complaint: DVT/Possible Blood Clot
Time Seen by Provider: 07/20/25 11:36
History of Present Illness
History of Present Illness:
65-year-old male presents to the emergency department for evaluation of left anterior and posterior knee pain and swelling that began yesterday. Having some difficulty walking. Denies any calf pain or calf swelling. No fevers or chills. No
trauma or falls. No recent prolonged immobilization or surgeries
Past History
Past History
ED Past Medical History: HTN, Hypercholesterolemia, Other (Migraines and sleep apnea) and Other (Patent foramen ovale)
ED Past Surgical History: Other (Surg for sleep apnea)
Social History
Tobacco: Non-smoker
Alcohol: None
Personal:
Living: with family
Employment: Employed
Family History
Family History: Hypertension and Other (Patient has no family history of cerebral aneurysms or subarachnoid hemorrhage. Patient has no personal history of connective tissue disease or polycystic kidney disease.); Negative Early CAD or Sudden
Review of Systems
Review of Systems
Allergies reviewed?: Yes
All Other Systems: ROS reviewed and negative except as documented in HPI and ROS
Phy Exam
Physical Exam
Physical Exam:
GEN: Well appearing, NAD, WDWN
HEENT: Oral mucosa moist, no scleral icterus
Cardiac: Regular rate
Lung: No respiratory distress, no tachypnea
MSK: No gross deformity or injuries, no obvious left knee effusion, no restriction with range of motion, no calf edema or calf swelling
Skin: Good color, no pallor or jaundice, no rashes
Neuro: AO x3, moves all extremities freely
Psych: Calm, cooperative
Course
Orders/Labs/Results
Orders:
Orders
07/20/25 11:45
CR Knee - Left 4 Or More View* Urgent
Comment:
Reason For Exam: pain
Vital Signs
Initial and Last Documented VS:
Initial Vital Signs
Temp Pulse Resp BP Pulse Ox
97.8 F 80 16 132/86 98
07/20/25 11:28 07/20/25 11:28 07/20/25 11:28 07/20/25 11:28 07/20/25 11:28
Last Documented Vital Signs
Temp Pulse Resp BP Pulse Ox
97.8 F 80 16 132/86 98
07/20/25 11:28 07/20/25 11:28 07/20/25 11:28 07/20/25 11:28 07/20/25 11:54
MDM/Problems Addressed
MDM/Problems Addressed:
Pain is likely related to mild degenerative change in the left knee, no clinical evidence for DVT, recommend NSAIDs, x-ray without acute osseous abnormality
*Pulse Oximetry
SaO2: 98
Oxygen Mode of Delivery: Room air
Patient hypoxic: no
*Critical Care Note
Total Time (30-74mins, 75-104mins- exclusive of procedures): Not Applicable
ED Attending Note
-
Portions of this chart may have been created with voice recognition software.� Occasional wrong word or��sound alike� substitutions may have occurred due to the inherent limitations of voice recognition software.
Discharge Plan
Departure
Patient Disposition: Home (Routine Discharge)
Date of Disposition: 07/20/25
Time of Disposition: 12:08
Patient with high blood pressure during this ER visit?: No
Discharge Problem:
Acute pain of left knee
Instructions: Sim's Cyst (DC)
Prescriptions:
New
celecoxib 200 mg capsule
200 mg PO BID Qty: 20 0RF
No Action
calcium polycarbophil [FiberCon] 625 mg Tablet
650 mg PO DAILY
finasteride 5 mg Tablet
5 mg PO HS
rosuvastatin 5 mg Tablet
5 mg PO HS
PhytoMulti 3-3-200 mg Tablet
1 tab PO DAILY
Pro [place] Curcumin
1 tab PO TID
ramipril 5 mg Capsule
5 mg PO HS
tamsulosin 0.4 mg Capsule
0.4 mg PO DAILY Qty: 30 0RF
glipizide 5 mg Tablet
5 mg PO BID@0800,1700 Qty: 60 0RF
metformin 500 mg tablet
500 mg PO BID Qty: 60 0RF
cefdinir 300 mg capsule
300 mg PO BID Qty: 30 0RF
Referrals:
Renée Mccallum MD [Family Provider, Internal Medicine]
Patrick Melendrez MD [Active, Orthopedics]
Activity Restrictions/Additional Instructions:
Use NSAIDs for pain control as prescribed
Follow up with Orthopedics if symptoms worsen
Interventions
Interventions:
*Risk Screen - Suicide Last Done: 07/20/25 11:28
*General Assessment Last Done: 07/20/25 11:41
*Neglect/Abuse Screening Last Done: 07/20/25 11:28
*ED COVID-19 Vaccine History Last Done: 07/20/25 11:41
*ED Influenza Vaccine History Last Done: 07/20/25 11:41
*Nursing Disposition Last Done: 07/20/25 12:13
ED- Cardiac Assessment Last Done: 07/20/25 11:41
ED- Pulmonary Assessment Last Done: 07/20/25 11:41
ED-Peripheral Vascular Assessment Last Done: 07/20/25 11:41
ED-Skin Assessment Last Done: 07/20/25 11:41
Discharge Date and Time
Discharge Date/Time: 07/20/25 12:17
Print Language: AMHARIC
== END 2025-07-20 12:17 | disposition home or self-care (01) ==
LOC: EMR 11:23
PROVIDERS: EMERGENCY PHYSICIAN Emergency Medicine; FAMILY PHYSICIAN Internal Medicine
DX: M25.562 Pain in left knee (principal); E78.00 Pure hypercholesterolemia, unspecified; G47.30 Sleep apnea, unspecified; I10 Essential (primary) hypertension; Z82.49 Family history of ischemic heart disease and other diseases of the circulatory system
CPT/HCPCS: 99283; 73564